=== PATIENT | female | born 1995 | race Caucasian/White ===

== ENCOUNTER → 2019-08-08 | Outpatient (CLI) | payer OTHER ==
[2019-08-08 13:30] LABS: BASO % 0.2 % (0.0-1.0); EOS # 0.2 10^3/uL (0.0-0.5); HEMATOCRIT 40.6 % (36.0-47.0); LYMPH # 2.6 10^3/uL (1.5-5.0); LYMPH % 26.3 % (24.0-44.0); MEAN CORPUSCULAR HEMOGLOBIN 31.5 pg (27.0-33.0); MEAN CORPUSCULAR HGB CONC 34.5 g/dl (32.0-36.5); MEAN CORPUSCULAR VOLUME 91.4 fl (80.0-96.0); MONO # 0.4 10^3/uL (0.0-0.8); MONO % 4.3 % (0.0-5.0); NEUTROPHILS # 6.6 10^3/uL (1.5-8.5); NEUTROPHILS % 66.9 % (36.0-66.0); PLATELET COUNT, AUTOMATED 259 10^3/uL (150-450); RED BLOOD COUNT 4.44 10^6/uL (4.00-5.40); WHITE BLOOD COUNT 9.8 10^3/uL (4.0-10.0)
[2019-08-08 14:41] LABS: HEPATITIS C VIRUS ABY INDEX < 0.0 INDEX (<0.8); HIV 1&2 SCREEN CENTAUR NEGATIVE (NEGATIVE); RUBELLA IgG QUALITATIVE IMMUNE (IMMUNE)
[2019-08-08 14:51] LABS: CHLAMYDIA DNA AMPLIFICATION NEGATIVE (NEGATIVE); GC DNA AMPLIFICATION NEGATIVE (NEGATIVE)
== END ==
LOC: M PLALAB 10:53
PROVIDERS: ATTEND Specialist
DX: Z34.01 Encounter for supervision of normal first pregnancy, first trimester (principal); Z36.89 Encounter for other specified antenatal screening

== ENCOUNTER → 2019-09-16 | Outpatient (CLI) | payer OTHER, MEDICAID | LOC: M PLALAB 11:52 | PROVIDERS: ATTEND Nurse Practitioner Women's Health | DX: Z34.82 Encounter for supervision of other normal pregnancy, second trimester (principal); Z36.89 Encounter for other specified antenatal screening ==

== ENCOUNTER → 2019-09-28 | Outpatient (CLI) | payer OTHER ==
--- NOTE | 2019-09-29 04:20 | REP ---
Clinical: Anatomical evaluation. Comparison: None . Findings: Examination demonstrates a single live intrauterine in transverse (head to maternal left) presentation. motion is identified by technologist. Placenta is noted anterior and grade zero without evidence for placenta previa or abruption. Amniotic fluid volume is normal. Cervix measures 3.1 cm in length and appears closed. No evidence for nuchal cord. Gestational age by current measurements 20 weeks 6 days with LORNA 02/09/2020 . FHR equals 150 beats per minute. BPD 5.3 cm 22 weeks 0 days HC 18.8 cm 21 weeks 1 day AC 15.2 cm 20 weeks 3 days FL 3.5 cm 20 weeks 6 days HL 3.2 cm 20 weeks 4 days HC/AC ratio 1.24 Estimated weight 373 grams ( 43rd percentile). Anatomical assessment demonstrates normal structures including cranium, choroid plexus, cavum, cerebellum/posterior fossa, facial features, lungs, four-chamber heart/ventricular outflow tracts, diaphragm, stomach, cord insertion/three-vessel cord, kidneys/bladder, and extremities. Impression: Single live intrauterine in transverse lie demonstrating appropriate estimated weight. Limited evaluation of the spine noted. Remainder of the anatomical assessment is complete and normal.
== END ==
LOC: M WHC 14:24
PROVIDERS: ATTEND Nurse Practitioner Women's Health
DX: Z34.02 Encounter for supervision of normal first pregnancy, second trimester (principal); Z3A.20 20 weeks gestation of pregnancy

== ENCOUNTER → 2019-10-27 | Outpatient (CLI) | payer OTHER, MEDICAID ==
--- NOTE | 2019-10-28 02:21 | REP ---
Clinical: Anatomical evaluation. Comparison: 09/28/2019 . Findings: Examination demonstrates a single live intrauterine in breech presentation. motion is identified by technologist. Placenta is noted anterior and grade zero without evidence for placenta previa or abruption. Amniotic fluid volume is normal. Cervix measures 4.8 cm in length and appears closed. No evidence for nuchal cord. Gestational age by LMP 24 weeks 0 days with LORNA 02/16/2020 . Gestational age by current measurements 23 weeks 6 days with LORNA 02/17/2020 . FHR equals 142 beats per minute. Estimated weight 653 grams ( 45th percentile). Anatomical assessment demonstrates normal transverse and sagittal imaging of the cervical, thoracic, and lumbar spine although images of the sacral spine are again suboptimal due to positioning. Impression: Single live intrauterine in breech presentation. Limited evaluation of the sacral spine due to positioning.
== END ==
LOC: M WHC 15:00
PROVIDERS: ATTEND Specialist
DX: Z34.92 Encounter for supervision of normal pregnancy, unspecified, second trimester (principal)

== ENCOUNTER → 2019-11-14 | Outpatient (CLI) | payer OTHER ==
--- NOTE | 2019-11-15 02:47 | REP ---
Clinical: Anatomical evaluation. Comparison: 10/27/2019 . Findings: Examination demonstrates a single live intrauterine in cephalic presentation. motion is identified by technologist. Placenta is noted anterior and grade I without evidence for placenta previa or abruption. Amniotic fluid volume is normal. Cervix measures 3.8 cm in length and appears closed. No evidence for nuchal cord. Gestational age by LMP 26 weeks 4 days with LORNA 02/16/2020 . Gestational age by current measurements 26 weeks 5 days with LORNA 02/15/2020 . FHR equals 138 beats per minute. Estimated weight 931 grams ( 37th percentile). Anatomical assessment demonstrates normal structures including cranium, facial features, stomach, cord insertion, kidneys/bladder, and spine. Impression: single live intrauterine in cephalic presentation demonstrating appropriate interval growth. In conjunction with prior examination anatomical assessment is complete and normal.
== END ==
LOC: M WHC 15:21
PROVIDERS: ATTEND Specialist
DX: Z36.89 Encounter for other specified antenatal screening (principal); Z3A.26 26 weeks gestation of pregnancy

== ENCOUNTER 2019-12-23 15:31 | Outpatient (CLI) | payer OTHER, MEDICAID ==
[~2019-12-23] VITALS: Ht 180.3 cm; Wt 97.0 kg
[2019-12-23 15:48] VITALS: BP 107/67
[2019-12-23] MEDS ORDERED: ZOLO25TA PO (15:56)
[2019-12-23] MEDS ORDERED: FAMO20TA PO (15:56)
[2019-12-23 16:49] LABS: APPEARANCE, URINE HAZY (CLEAR); BACTERIA, URINE AUTO NEGATIVE (NEGATIVE); BILIRUBIN, URINE AUTO NEGATIVE (NEGATIVE); BLOOD, URINE BLOOD NEGATIVE (NEGATIVE); CALCIUM OXALATE CRYSTALS SMALL; COLOR, URINE YELLOW (YELLOW); GLUCOSE, URINE (UA) AUTO NEGATIVE (NEGATIVE); KETONE, URINE AUTO NEGATIVE (NEGATIVE); LEUKOCYTE ESTERASE, URINE AUTO TRACE (NEGATIVE); MUCUS, URINE SMALL (NEGATIVE); NITRITE, URINE AUTO NEGATIVE (NEGATIVE); PROTEIN, URINE AUTO NEGATIVE (NEGATIVE); RBC, URINE AUTO 3 /HPF (0-3); SPECIFIC GRAVITY URINE AUTO 1.016 (1.002-1.035); SQUAMOUS EPITHELIAL CELL UR AU 3 /HPF (0-6); UROBILINOGEN, URINE AUTO 0.2 mg/dL (0.0-2.0); WBC, URINE AUTO 1 /HPF (0-3)
--- NOTE | 2019-12-23 16:53 | IPNPDOC ---
Text Note Date of Service The patient was seen on 12/23/19. NOTE Outpatient 24yo G1 LORNA 02/14/2020. Presents @ 32w3d with complaints of upper abdominal cramping since 0700. States they are irregular, 10-20 miinutes apart. Denies LOF, bleeding or pelvic pressure/cramping. Hx significant for poor compliance with care and labs. Pt states she hasn't eaten since 1000 this am. "I was going to come to town Thursday for my labs but now I won't be able to". No apparent distress. Resting easily in bed Abdomen soft, gravid, appropriate for gestation. Patient shows discomfort location at fundus, no radiation. Fetus audibly active. Cat I Mild, rare UC. UA/C&S obtained. Spec exam - cervix visually LTC. Moderate creamy mucoid discharge. FFN obtained. GC/CT/Trich obtained. 1hr GCT ordered along with 26wk labs. Pt verbalized understanding. VS,Fishbone, I+O VS, Fishbone, I+O Vital Signs Date Time Temp Pulse Resp B/P (MAP) Pulse Ox O2 Delivery O2 Flow Rate FiO2 12/23/19 15:48 97.5 123 17 107/67 (80) Silvina Walter CNM Dec 23, 2019 16:52
[2019-12-23 17:47] LABS: HEMATOCRIT 36.9 % (36.0-47.0); HEMOGLOBIN 12.1 g/dl (12.0-15.5); MEAN CORPUSCULAR HEMOGLOBIN 30.6 pg (27.0-33.0); MEAN CORPUSCULAR HGB CONC 32.8 g/dl (32.0-36.5); MEAN CORPUSCULAR VOLUME 93.2 fl (80.0-96.0); PLATELET COUNT, AUTOMATED 223 10^3/uL (150-450); RED BLOOD COUNT 3.96 10^6/uL (4.00-5.40); WHITE BLOOD COUNT 12.4 10^3/uL (4.0-10.0)
[2019-12-23 18:11] LABS: GLUCOSE CHALLENGE TEST 1 HOUR 137 MG/DL (LESS THAN 140)
--- NOTE | 2019-12-23 18:33 | IPNPDOC ---
Text Note Date of Service The patient was seen on 12/23/19. NOTE Progress Feels better after increased hydration, decreased cramping. Cat I tracing, no UC FFN is negative. Discharged home with instructions to reach for after hours access, PTL, daily FKC, warnings reviewed. Keep next appt VS,Fishbone, I+O VS, Fishbone, I+O Laboratory Tests 12/23/19 17:32 Vital Signs Date Time Temp Pulse Resp B/P (MAP) Pulse Ox O2 Delivery O2 Flow Rate FiO2 12/23/19 15:48 97.5 123 17 107/67 (80) Silvina Walter CNM Dec 23, 2019 18:33
[2019-12-23 19:13] LABS: ALT/SGPT 16 U/L (12-78); CREATININE FOR GFR 0.47 MG/DL (0.55-1.30); GLOMERULAR FILTRATION RATE > 60.0 (>60); LDH LACTATE DEHYDROGENASE 112 U/L (84-246); URIC ACID 3.8 MG/DL (2.6-6.0)
[2019-12-23 19:23] LABS: CHLAMYDIA DNA AMPLIFICATION NEGATIVE (NEGATIVE); GC DNA AMPLIFICATION POSITIVE (NEGATIVE)
[2019-12-23 19:37] LABS: TOTAL PROTEIN,RANDOM URINE 27.3 MG/DL (0.0-12.0)
[2019-12-23 20:09] LABS: BILIRUBIN,TOTAL < 0.1 MG/DL (0.2-1.0)
== END 2019-12-23 18:18 | disposition home or self-care (01) ==
LOC: M LDO 15:31
PROVIDERS: ATTEND Advanced Practice Midwife
DX: O26.893 Other specified pregnancy related conditions, third trimester (principal); R10.10 Upper abdominal pain, unspecified; Z3A.32 32 weeks gestation of pregnancy

== ENCOUNTER → 2020-01-20 | Outpatient (REF) | payer OTHER, MEDICAID ==
[~2020-01-20] MED LIST: FAMO20TA PO; IBUP80TA PO; OMEP40CA97 PO; PRENTAB9 PO; ZOFR4TAB16 PO; ZOLO25TA PO
[2020-03-13 12:55] LABS: CHLAMYDIA DNA AMPLIFICATION NEGATIVE (NEGATIVE); GC DNA AMPLIFICATION NEGATIVE (NEGATIVE)
== END ==
LOC: M SFHCWAGY 14:34
PROVIDERS: ATTEND Specialist
DX: Z11.3 Encounter for screening for infections with a predominantly sexual mode of transmission (principal)

== ENCOUNTER 2020-02-07 11:00 | Outpatient (CLI) | payer OTHER, MEDICAID ==
[~2020-02-07] VITALS: Ht 180.3 cm; Wt 106.5 kg
[~2020-02-07 11:00] MED LIST changes: -IBUP80TA PO; -OMEP40CA97 PO; -PRENTAB9 PO; -ZOFR4TAB16 PO
[2020-02-07 11:20] VITALS: BP 104/69
[2020-02-07] MEDS ORDERED: ZOFR4TAB16 PO (11:22)
[2020-02-07] MEDS ORDERED: PRENTAB9 PO (11:22)
[2020-02-07] MEDS ORDERED: OMEP40CA97 PO (11:22)
[2020-02-07 12:00] VITALS: BP 112/72
== END 2020-02-07 12:15 | disposition home or self-care (01) ==
LOC: M LDO 11:00
PROVIDERS: ATTEND Obstetrics & Gynecology
DX: O47.1 False labor at or after 37 completed weeks of gestation (principal); Z3A.38 38 weeks gestation of pregnancy
CPT/HCPCS: 59025; G0378; G0463

== ENCOUNTER 2020-02-08 07:23 | Outpatient (CLI) | payer OTHER, MEDICAID ==
[~2020-02-08] VITALS: Ht 180.3 cm; Wt 106.9 kg
[~2020-02-08 07:23] MED LIST changes: +OMEP40CA97 PO; +PRENTAB9 PO; +ZOFR4TAB16 PO
[2020-02-08 07:43] VITALS: BP 109/62
== END 2020-02-08 09:20 | disposition home or self-care (01) ==
LOC: M LDO 07:23
PROVIDERS: ATTEND Advanced Practice Midwife
DX: O47.1 False labor at or after 37 completed weeks of gestation (principal); Z3A.38 38 weeks gestation of pregnancy
CPT/HCPCS: 59025; G0378; G0463

== ENCOUNTER 2020-02-10 06:08 | Inpatient (IN) | payer OTHER ==
[~2020-02-10] VITALS: Ht 180.3 cm; Wt 107.3 kg
[2020-02-10] VITALS (40 sets, daily range): BP systolic 88–135; BP diastolic 53–88
[2020-02-10] MEDS ORDERED: PENICILLIN G POTASSIUM IV 5 MU in D5W MINI-BAG PLUS 100 ML IV STA (08:12)
[2020-02-10] MEDS ORDERED: LR 1,000 ML IV SCH ×3 (08:12→16:30)
[2020-02-10] MEDS ORDERED: LACTATED RINGER'S 1000 ML IV STA (08:12)
--- NOTE | 2020-02-10 09:01 | HPEPDOC ---
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 Scoliosis Surgical History: Gallbladder, Tonsilectomy Family History Significant Family History: No pertinent family hx Social History Marital Status: Single Psychosocial History: Anxiety, Bipolar, Depression Alcohol: Denies Drugs: denies Allergies Coded Allergies: Latex, Natural Rubber (Verified Allergy, Mild, Burning, 02/08/20) Medications Scheduled Omeprazole (Omeprazole) 40 Mg Capsule.dr, 40 MG PO DAILY Sertraline Hcl (Zoloft) 25 Mg Tablet, 50 MG PO DAILY Scheduled PRN Ondansetron HCl (Zofran) 4 Mg Tablet, 4 MG PO Q4HP PRN for nausea/vomiting Physical Examination Physical Examination GENERAL: Alert and oriented times three. Very uncomfortable BREAST: . ABDOMEN: Gravid and non-tender to touch. FETUS: Is vertex (VTX) by sterile vaginal examination (SVE), fetus is vertex (VTX) by Prince. HEART RATE: Regular rate and rhythm. LUNGS: Clear to auscultation (CTA). EXTREMITIES: No edema. No clonus. Deep tendon reflexes (DTRs) + 2. Vital Signs/I&O Vital Signs Date Time Temp Pulse Resp B/P (MAP) Pulse Ox O2 Delivery O2 Flow Rate FiO2 02/10/20 06:20 97.7 79 20 103/59 (74) Pertinent Laboratoy Data Blood Type: A+ RBC Antibody Screen: Negative HIV: Negative Hepatitis B: Negative Hepatitis C: Negative Rapid Plasma Reagin: Nonreactive Rubella: Immune Chlamydia/Gonorrhea: Negative (negative 08/08/2019. GC + /10, treated, repeat negative) Group B Streptococcus: Positive Glucose Tolerance Test: 137 (3hr not performed) Anatomy Ultrasound Ultrasound Date: Sep 28, 2019 Placenta Location: Anterior Normal Anatomy: Yes (limited views of spine) Placenta Previa: No Estimated Weight (grams): 373 (43%) Other Ultrasounds 10/27/2019 F/u spine, limited views of sacral spine, breech. EFW 653gm, 45% 11/14/2019 f/u spine. Normal f/u anatomy, cephalic. EFW 931gm, 37% Steroid Therapy Steroid Therapy: No Vaginal Examination Dilation: 5 cm Effacement: 100% Station: -1 Cervical Consistency: Soft Cervical Position: Middle Presentation: Cephalic presentation Assessment Heart Rate (FHR): 134 Variability: Moderate Accelerations: Positive Decelerations: None Tocometer Contractions: Yes Frequency: irregular, every 3-7 min. Duration: greater than 60 seconds Strength: palpated as moderate Assessment/Plan Assessment Mercedes is a 24-year-old (G)1 para (P)0-0-0-0 at 39+1 weeks. Presents to Labor and Delivery (L&D) with reports of onset UC with vomiting starting 0200. Reports LOF, clear enroute to hospital, 0545. Light bloody show. Fetus is active. Plan Admit and orient. 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 Diet: Clear liquids. Group B Streptococcus (GBS) positive. Labs and intravenous (IV) per unit protocol. Counseled on Pitocin and induction of labor (IOL). Lactated Ringers (LR): Bolus 500 mL, then at 125 mL/hr. Plans epidural for labor coping Anticipate normal spontaneous delivery (). C-S as appropriate. Silvina Walter CNM Feb 10, 2020 08:46
[2020-02-10] MEDS ORDERED: ONDANSETRON 4MG/2ML VIAL IV PRN ×4 (09:15→16:30)
[2020-02-10 09:45] LABS: HEMATOCRIT 35.5 % (36.0-47.0); MEAN CORPUSCULAR HEMOGLOBIN 30.3 pg (27.0-33.0); MEAN CORPUSCULAR HGB CONC 33.8 g/dl (32.0-36.5); MEAN CORPUSCULAR VOLUME 89.6 fl (80.0-96.0); PLATELET COUNT, AUTOMATED 214 10^3/uL (150-450); RED BLOOD COUNT 3.96 10^6/uL (4.00-5.40); WHITE BLOOD COUNT 12.9 10^3/uL (4.0-10.0)
[2020-02-10] MEDS ORDERED: FENTANYL 2MCG/ML ROPIVACAINE 0.2% IN 0.9% NACL 100ML IVBAG As Ordered ONE (10:28)
[2020-02-10] MEDS ORDERED: ePHEDrine SULFATE 25 MG/5 ML(5MG/ML) SYRINGE As Ordered ONE (11:47)
[2020-02-10] MEDS ORDERED: FENTANYL/ROPIVACAINE/NACL BAG 100 ML EPIDURAL SCH (12:00)
[2020-02-10] MEDS ORDERED: EPIDURAL COMMENT XX SCH (12:00)
[2020-02-10] MEDS ORDERED: EPIDURAL/PCA KEYS XX PRN (12:00)
[2020-02-10] MEDS ORDERED: NALOXONE INJ 0.4MG/1ML VIAL (J2310 PER 1MG) IV PRN ×3 (12:00→15:00)
[2020-02-10] MEDS ORDERED: REFRIGERATOR IV KEYS XX PRN (12:00)
[2020-02-10] MEDS ORDERED: diphenhydrAMINE 50MG/ML VIAL (J1200) IV PRN ×2 (12:00→15:00)
--- NOTE | 2020-02-10 12:40 | IPNPDOC ---
Text Note Date of Service The patient was seen on 02/10/20. NOTE Progress Comfortable with epidural FH difficult to trace UC 2-4 minutes SVE 7/100/-1, BBOW AROM large amount moderately thick meconium. FSE placed. Cat I tracing Will notify NICU for delivery VS,Fishbone, I+O VS, Fishbone, I+O Laboratory Tests 02/10/20 09:17 Vital Signs Date Time Temp Pulse Resp B/P (MAP) Pulse Ox O2 Delivery O2 Flow Rate FiO2 02/10/20 09:59 70 20 113/74 (87) 02/10/20 08:17 97.3 Silvina Walter CNM Feb 10, 2020 12:39
[2020-02-10] MEDS ORDERED: PENICILLIN G POTASSIUM IV 2.5 MU in IV 1 EA IV SCH (13:00)
[2020-02-10] MEDS: ePHEDrine SULFATE 25 MG/5 ML(5MG/ML) SYRINGE IV PRN ×3 (13:53→14:10)
[2020-02-10] MEDS ORDERED: TERBUTALINE SULFATE 1 MG/ML VIAL (J3105) As Ordered ONE (14:08)
[2020-02-10] MEDS ORDERED: BICITRA 30ML SOLN UDC As Ordered ONE (14:23)
[2020-02-10] MEDS ORDERED: ceFAZolin 2 GM/D5W 50 ML IV BAG (J0690 PER 500MG) As Ordered ONE (14:23)
[2020-02-10] MEDS ORDERED: LIDOCAINE 2% W/EPINEPHRINE 20ML VIAL **PRES FREE As Ordered ONE (14:38)
[2020-02-10] MEDS ORDERED: MORPHINE PRES-FREE INJ 10 MG/10 ML VIAL (J2274) As Ordered ONE (14:38)
--- NOTE | 2020-02-10 14:40 | IPNPDOC ---
Text Note Date of Service The patient was seen on 02/10/20. NOTE Progress Prolonged heart deceleration to 70's-80's despite O2, position change, IVF bolus. Ephedrine given x 3. Terbutaline 0.25mg SC given Cervix remains [address] Cazares and Evelyn in to evaluation. Prepare for . VS,Fishbone, I+O VS, Fishbone, I+O Laboratory Tests 02/10/20 09:17 Vital Signs Date Time Temp Pulse Resp B/P (MAP) Pulse Ox O2 Delivery O2 Flow Rate FiO2 02/10/20 12:09 92 16 134/79 (97) 02/10/20 08:17 97.3 Silvina Walter CNM Feb 10, 2020 14:40
[2020-02-10] MEDS ORDERED: TERBUTALINE SULFATE 1 MG/ML VIAL (J3105) SC ONE (14:45)
[2020-02-10] MEDS ORDERED: BICITRA 30ML SOLN UDC PO ONE (14:45)
[2020-02-10] MEDS ORDERED: ceFAZolin SOD 2 GM in IV 1 EA IV ONE (14:45)
[2020-02-10] MEDS ORDERED: PHENYLephrine HCL 500 MCG/5 ML (100MCG/ML) SYRINGE (J2370) As Ordered ONE (14:51)
[2020-02-10] MEDS ORDERED: ONDANSETRON 4MG/2ML VIAL As Ordered ONE (14:54)
[2020-02-10] MEDS ORDERED: NALBUPHINE HCL 10 MG/ML AMP (J2300) IV PRN (15:00)
[2020-02-10] MEDS ORDERED: OXYTOCIN INJ 10 UNITS/ML VIAL (J2590) As Ordered ONE (15:00)
[2020-02-10] MEDS ORDERED: METOCLOPRAMIDE INJ 10MG/2ML VIAL (J2765 PER 1) IV PRN ×2 (15:00→16:30)
[2020-02-10] MEDS ORDERED: dexameTHASONE 4 MG/ML 1ML VIAL (J1100 PER 1MG) As Ordered ONE (15:03)
[2020-02-10 15:16] LABS: CORD GAS PCO2 A 62.3 mmHg; CORD GAS PH A 7.221 UNITS; CORD GAS PO2 A 19.3 mmHg; CORD GAS TCO2 A 26.9 MEQ/L
[2020-02-10 15:17] LABS: CORD GAS ABE A -4.1; CORD GAS HCO3 V 22.4 MEQ/L; CORD GAS O2 SAT A 31.7 %; CORD GAS PCO2 V 45.1 mmHg; CORD GAS PH V 7.313 UNITS; CORD GAS SBC A 19.5 MEQ/L; CORD GAS SBC V 20.4 MEQ/L; CORD GAS TCO2 V 23.7 MEQ/L
[2020-02-10 15:18] LABS: CORD GAS O2 SAT V 62.6 %
[2020-02-10] MEDS ORDERED: KETOROLAC 60MG 2ML VIAL As Ordered ONE (15:32)
[2020-02-10] MEDS ORDERED: ACETAMINOPHEN 500 MG TAB PO PRN (16:00)
[2020-02-10] MEDS ORDERED: OXYTOCIN DRIP 30 UNITS in IV 1 EA IV SCH (16:00)
[2020-02-10] MEDS ORDERED: PROMETHAZINE 25 MG TAB PO PRN (16:00)
[2020-02-10] MEDS ORDERED: ONDANSETRON 4 MG TAB PO PRN (16:00)
[2020-02-10] MEDS ORDERED: RHOGAM 300 MCG (1500 IU) INJ (J2790) IM SCH (16:00)
[2020-02-10] MEDS ORDERED: MEASLES,MUMPS,RUBELLA VACCINE INJ (MMR-II) (90707) SC SCH (16:00)
[2020-02-10] MEDS ORDERED: OXYTOCIN 30 UNITS IN 0.9% NaCl 500ML IV BAG (J2590) As Ordered ONE (16:13)
[2020-02-10] MEDS ORDERED: AZITHROMYCIN INJ 500 MG, VIAL MATE ADAPTER 1 EACH in D5W 250 ML IV ONE (16:15)
[2020-02-10] MEDS ORDERED: fentaNYL 100 MCG/2 ML INJECTION (J3010) IV PRN (16:30)
[2020-02-10] MEDS ORDERED: PERCOCET 5MG/325MG TAB PO PRN (16:30)
[2020-02-10] MEDS ORDERED: METOCLOPRAMIDE INJ 10MG/2ML VIAL (J2765 PER 1) As Ordered ONE (16:54)
[2020-02-10] MEDS: DOCUSATE SODIUM 100 MG CAP PO SCH (20:46)
[2020-02-10] MEDS: KETOROLAC 30 MG/ML 1ML VIAL IV SCH (22:09)
[2020-02-11 01:51] VITALS: BP 112/68
[2020-02-11] MEDS: PERCOCET 5MG/325MG TAB PO PRN ×2 (02:47→16:23)
[2020-02-11] MEDS: KETOROLAC 30 MG/ML 1ML VIAL IV SCH ×2 (04:08→10:23)
[2020-02-11 05:57] VITALS: BP 123/71
[2020-02-11 07:03] LABS: HEMATOCRIT 26.4 % (36.0-47.0); HEMOGLOBIN 8.9 g/dl (12.0-15.5); MEAN CORPUSCULAR HEMOGLOBIN 30.4 pg (27.0-33.0); MEAN CORPUSCULAR HGB CONC 33.7 g/dl (32.0-36.5); MEAN CORPUSCULAR VOLUME 90.1 fl (80.0-96.0); PLATELET COUNT, AUTOMATED 175 10^3/uL (150-450); RED BLOOD COUNT 2.93 10^6/uL (4.00-5.40); WHITE BLOOD COUNT 15.3 10^3/uL (4.0-10.0)
--- NOTE | 2020-02-11 07:17 | IPNPDOC ---
Text Note Date of Service The patient was seen on 02/11/20. NOTE PO #1 Feels well. Adequate pain management. OOB independently. . Voiding VSS, afebrile, normotensive Breasts soft, nipples intact Fundus firm, NT Dressing intact, scant old drainage Lochia rubra light without odor PO #1 Routine care. Anticipate D/C in am VS,Fishbone, I+O VS, Fishbone, I+O Laboratory Tests 02/10/20 09:17 02/11/20 06:37 Vital Signs Date Time Temp Pulse Resp B/P (MAP) Pulse Ox O2 Delivery O2 Flow Rate FiO2 02/11/20 06:32 18 02/11/20 05:57 98.8 84 123/71 (88) 96 02/11/20 02:47 Room Air I&O- Last 24 Hours up to 6 AM 02/11/20 06:00 Intake Total 1110 ml Output Total 3750 ml Balance -2640 ml Silvina Walter CNM Feb 11, 2020 07:17
[2020-02-11 10:00] VITALS: BP 110/54
[2020-02-11] MEDS: PRENATAL VITAMINS CHEWABLE TABLET PO SCH (10:22)
[2020-02-11] MEDS: DOCUSATE SODIUM 100 MG CAP PO SCH ×2 (10:22→21:33)
[2020-02-11 18:00] VITALS: BP 121/68
[2020-02-11] MEDS: IBUPROFEN 800 MG TAB PO SCH (18:02)
[2020-02-11] MEDS ORDERED: FAMOTIDINE 20 MG TAB PO SCH (21:00)
[2020-02-11] MEDS ORDERED: SERTRALINE HCL 50 MG TAB PO SCH (21:00)
[2020-02-11 22:06] VITALS: BP 112/61
[2020-02-12] MEDS: PERCOCET 5MG/325MG TAB PO PRN ×3 (00:21→15:56)
[2020-02-12] MEDS: IBUPROFEN 800 MG TAB PO SCH ×2 (02:16→10:00)
[2020-02-12 06:06] VITALS: BP 106/56
[2020-02-12] MEDS ORDERED: IBUP80TA PO (06:31)
[2020-02-12] MEDS: DOCUSATE SODIUM 100 MG CAP PO SCH (07:54)
[2020-02-12] MEDS: PRENATAL VITAMINS CHEWABLE TABLET PO SCH (07:55)
[2020-02-12] MEDS ORDERED: BOOSTRIX/ADACEL VACCINE (DIPHTH/PERTUSS/ACELL/TETANUS) 0.5ML SYR IM ONE (09:00)
--- NOTE | 2020-02-28 12:07 | DSES ---
DATE OF ADMISSION: 02/10/2020 DATE OF DISCHARGE: 02/12/2020 HISTORY: 24-year-old, 1 at 39-1/7 weeks gestation presents with regular contractions for several hours and contractions increased in intensity. She had vomiting as well. HOSPITAL COURSE: The patient was admitted for labor on 02/10/2020 in the coremaking supervisor hours. She made slow initial progress in labor. She eventually began to have repetitive heart rate decelerations which were prolonged. She subsequently went for an urgent section resulting in a 7 pound 14 ounce infant. There were no complications. Her postoperative course was unremarkable. She had adequate return of bladder and bowel function. Her postoperative hemoglobin was 8.9 g/dL. She was deemed stable for discharge on postoperative day #2. PROCEDURE: Primary section. PLAN: Patient will followup in 2 weeks. Instructions were reviewed. MARIANO
== END 2020-02-12 21:27 | disposition home or self-care (01) | DRG 540 ==
LOC: M LDO 06:08 → M LDI 08:31 → M OBS 17:24
PROVIDERS: ADMIT Advanced Practice Midwife; ATTEND Advanced Practice Midwife
PROC: 10D00Z1 Extraction of Products of Conception, Low, Open Approach (ICD-10-PCS; principal; 2020-02-10 14:22)
DX: O76 Abnormality in fetal heart rate and rhythm complicating labor and delivery (principal); O99.824 Streptococcus B carrier state complicating childbirth; Z37.0 Single live birth; Z3A.39 39 weeks gestation of pregnancy; Z91.040 Latex allergy status

== ENCOUNTER 2021-03-03 21:21 | Inpatient (IN) | payer OTHER, MEDICAID ==
[~2021-03-03] VITALS: Ht 180.3 cm; Wt 96.9 kg
[~2021-03-03 21:21] MED LIST changes: +IBUP80TA PO; +OMEP40CA4 PO; -OMEP40CA97 PO
[2021-03-03 22:47] LABS: HEMATOCRIT 43.8 % (36.0-47.0); MEAN CORPUSCULAR HEMOGLOBIN 31.4 pg (27.0-33.0); MEAN CORPUSCULAR HGB CONC 34.2 g/dl (32.0-36.5); MEAN CORPUSCULAR VOLUME 91.6 fl (80.0-96.0); PLATELET COUNT, AUTOMATED 300 10^3/uL (150-450); RED BLOOD COUNT 4.78 10^6/uL (4.00-5.40); WHITE BLOOD COUNT 9.2 10^3/uL (4.0-10.0)
[2021-03-03 23:19] LABS: HCG, SERUM QUALITATIVE NEGATIVE (NEGATIVE)
[2021-03-03 23:22] LABS: ACETAMINOPHEN LEVEL < 2.0 UG/ML (10.0-30.0); ALT/SGPT 19 U/L (12-78); BILIRUBIN,DIRECT 0.1 MG/DL (0.0-0.2); BILIRUBIN,TOTAL 0.6 MG/DL (0.2-1.0); BLOOD UREA NITROGEN 12 MG/DL (7-18); CALCIUM LEVEL 8.8 MG/DL (8.5-10.1); CARBON DIOXIDE LEVEL 25 MEQ/L (21-32); CHLORIDE LEVEL 107 MEQ/L (98-107); CREATININE FOR GFR 0.66 MG/DL (0.55-1.30); ETHYL ALCOHOL (ETHANOL) < 0.003 % (0.000-0.010); GLOMERULAR FILTRATION RATE > 60.0 (>60); GLUCOSE, FASTING 78 MG/DL (70-100); POTASSIUM SERUM 3.9 MEQ/L (3.5-5.1); SALICYLATE LEVEL < 1.7 MG/DL (5.0-30.0); SODIUM LEVEL 140 MEQ/L (136-145); THYROID STIMULATING HORMONE 0.856 uIU/ML (0.358-3.740); TOTAL PROTEIN 7.5 GM/DL (6.4-8.2)
[2021-03-03 23:26] LABS: AMPHETAMINES LEVEL URINE POSITIVE (NEGATIVE); BARBITURATES URINE NEGATIVE (NEGATIVE); BENZODIAZEPINES URINE POSITIVE (NEGATIVE); CANNABINOIDS URINE POSITIVE (NEGATIVE); COCAINE METABOLITE URINE NEGATIVE (NEGATIVE); METHADONE URINE NEGATIVE (NEGATIVE); OPIATES URINE NEGATIVE (NEGATIVE); PHENCYCLIDINE URINE NEGATIVE (NEGATIVE)
[2021-03-04] MEDS ORDERED: SERO200T PO (01:54)
[2021-03-04] MEDS ORDERED: VYVA40CA3 PO (01:54)
[2021-03-04] MEDS ORDERED: LAMI1TAB7 PO (01:55)
[2021-03-04] MEDS ORDERED: clonazePAM 0.5 MG TAB PO ONE (09:45)
[2021-03-04 12:40] LABS: RSV AMPLIFICATION NEGATIVE (NEGATIVE)
[2021-03-04] MEDS ORDERED: OLANZapine ORAL DISINTEGRATING TAB 5MG PO SCH (16:00)
[2021-03-04 16:56] VITALS: BP 130/81
[2021-03-04] MEDS ORDERED: OLANZapine ORAL DISINTEGRATING TAB 5MG PO ONE (17:00)
--- NOTE | 2021-03-04 17:17 | MHIPNPDOC ---
[facility] Progress Note Progress Note DATE OF SERVICE: 03/04/21 This web content writer discussed the case with Matteo Hidalgo who reported the patient as being very bizarre and delusional, having disorganized thoughts. This web content writer reviewed the previous Mental health Evlauation when initially came to the ED and concluded that the patient is at risk because she seems to be going through a manic episode which may and may not be secondary to amphetamines, since she tested positive for these. She is not safe to go home, she needs to be admitted for treatment and stabilization to [facility]. Vital Signs Vital Signs Date Time Temp Pulse Resp B/P (MAP) Pulse Ox O2 Delivery O2 Flow Rate FiO2 03/04/21 16:56 97.6 71 20 130/81 (97) 93 Room Air Laboratory Data 24H Labs Laboratory Tests 2 03/03/21 22:37: Nucleated Red Blood Cells % (auto) 0.0, Anion Gap 8, Glomerular Filtration Rate > 60.0, Calcium Level 8.8, Total Bilirubin 0.6, Direct Bilirubin 0.1, Aspartate Amino Transf (AST/SGOT) 10, Alanine Aminotransferase (ALT/SGPT) 19, Alkaline Phosphatase 46, Total Protein 7.5, Albumin 4.0, Albumin/Globulin Ratio 1.1L, Thyroid Stimulating Hormone (TSH) 0.856, Human Chorionic Gonadotropin, Qual NEGATIVE, Salicylates Level < 1.7L, Urine Opiates Screen NEGATIVE, Urine Methadone Screen NEGATIVE, Acetaminophen Level < 2.0L, Urine Barbiturates Screen NEGATIVE, Urine Phencyclidine Screen NEGATIVE, Urine Amphetamines Screen POSITIVEH, Urine Benzodiazepines Screen POSITIVEH, Urine Cocaine Metabolite Screen NEGATIVE, Urine Cannabinoids Screen POSITIVEH, Ethyl Alcohol Level < 0.0 03 03/04/21 11:54: Coronavirus (COVID-19)(PCR) NEGATIVE, Influenza Type A (RT-PCR) NEGATIVE, Influenza Type B (RT-PCR) NEGATIVE, Respiratory Syncytial Virus (PCR) NEGATIVE CBC/BMP Laboratory Tests 03/03/21 22:37 Current Medications Current Medications Medications (Trade) Dose Ordered Sig/Sean Route PRN Reason Start Time Stop Time Status Last Admin Dose Admin Acetaminophen (Tylenol Tab) 650 mg Q6HP PRN PO HEADACHE or MILD DISCOMFORT 03/04/21 15:25 Al Hydrox/Mg Hydrox/Simethicone (Mylanta) 30 ml Q4HP PRN PO HEARTBURN/INDIGESTION 03/04/21 15:25 Magnesium Hydroxide (Milk Of Magnesia) 30 ml DAILYPRN PRN PO CONSTIPATION 03/04/21 15:25 Nicotine (Nicoderm Cq 7 Mg) 1 patch DAILY PRN TD nicotine withdrawl 03/04/21 15:25 Olanzapine (ZyPREXA ZYDIS) 5 mg TID PO 03/04/21 16:00 Quetiapine Fumarate (SEROquel) 100 mg QHSP PRN PO insomnia 03/04/21 15:25 Allergies Coded Allergies: haloperidol (Verified Allergy, Severe, Tongue Swelling , 03/03/21) Per patient Latex, Natural Rubber (Verified Allergy, Mild, Burning, 02/08/20) BATOOL EM MD Mar 04, 2021 17:17
[2021-03-04] MEDS: ACETAMINOPHEN TAB 650MG DOSE (2X325MG) PO PRN (18:25)
[2021-03-04] MEDS ORDERED: LORazepam 2 MG TAB PO ONE (19:40)
[2021-03-04] MEDS ORDERED: chlorproMAZINE 25 MG TABLET PO ONE (19:50)
[2021-03-04] MEDS: diphenhydrAMINE 50MG CAP PO ONE ×2 (19:53→20:27)
[2021-03-04] MEDS: QUEtiapine FUMARATE 100 MG TAB PO PRN (23:53)
[2021-03-05] MEDS ORDERED: LORazepam 1 MG TAB PO ONE ×2 (00:10→21:50)
[2021-03-05] MEDS ORDERED: diphenhydrAMINE 50MG CAP PO ONE (00:10)
[2021-03-05] MEDS ORDERED: diphenhydrAMINE 25MG CAP PO ONE (00:15)
--- NOTE | 2021-03-05 00:38 | IPNPDOC ---
Text Note Date of Service The patient was seen on 03/05/21. NOTE CODE 25 NOTE TIME OF SERVICE 1230AM PSYCH CERTIFICATION FACE TO FACE: yes PHYSICIAN ASSESSMENT: The patient was agitated yelling at staff and pushing the furniture in her room around; [facility] staff felt that she was a danger to herself so they called a code 25. VITALS GEN: irritable / yelling MSK: extremities in restraints REASON FOR RESTRAINT: The patient was a danger to herself. DE-ESCALATION INTERVENTIONS ATTEMPTED BEFORE USE OF RESTRAINTS: verbal redirection [MECHANICAL AND/OR CHEMICAL] RESTRAINTS USED: Both LENGTH OF TIME ORDERED IN RESTRAINTS: 4 hours WHEN TO DISCONTINUE RESTRAINTS: When the patient is no longer a threat to herself or others Post evaluation of restraint due in 24 hours. VS,Fishbone, I+O VS, Fishbone, I+O Vital Signs Date Time Temp Pulse Resp B/P (MAP) Pulse Ox O2 Delivery O2 Flow Rate FiO2 03/04/21 16:56 97.6 71 20 130/81 (97) 93 Room Air CIPRIANO REEVES MD Mar 05, 2021 00:38
[2021-03-05] MEDS ORDERED: chlorproMAZINE INJ 50MG/2ML AMP (J3230) IM STA (00:41)
[2021-03-05 04:00] VITALS: BP 130/81
[2021-03-05 04:01] VITALS: BP 115/76
[2021-03-05] MEDS ORDERED: diphenhydrAMINE 50MG/ML VIAL (J1200) IM ONE (04:25)
[2021-03-05] MEDS ORDERED: chlorproMAZINE INJ 50MG/2ML AMP (J3230) IM ONE (04:25)
[2021-03-05] MEDS ORDERED: LORazepam 2 MG/ML VIAL IM ONE (04:25)
[2021-03-05] MEDS: OLANZapine ORAL DISINTEGRATING TAB 5MG PO SCH (08:36)
[2021-03-05] MEDS ORDERED: OLANZapine 5 MG TAB PO SCH (09:00)
[2021-03-05] MEDS ORDERED: chlorproMAZINE 25 MG TABLET PO ONE ×2 (10:50→21:50)
[2021-03-05] MEDS: LORazepam 2 MG TAB PO PRN ×2 (10:55→17:06)
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
--- NOTE | 2021-03-05 13:46 | ECGEPIP ---
[facility] - ED Test Date: 2021-03-04 Pat Name: TYRESE ZAMORANO Department: Room: - Gender: Female Data Officer: JOSE : 1995 Requested By: KIMBERLY Taylor Order Number: [id number] Reading MD: Stefany Guzman Measurements Intervals [place] Rate: 82 P: 14 FL: 138 QRS: 59 QRSD: 94 T: 24 QT: 390 QTc: 455 Interpretive Statements Normal sinus rhythm No prior Electronically Signed on 03-05-2021 13:46:33 EDT by Stefany Guzman
[2021-03-05] MEDS: DIVALPROEX 250MG *ER* TAB PO SCH (15:30)
[2021-03-05 17:16] VITALS: BP 129/89
[2021-03-05] MEDS ORDERED: VRAY1.5C PO (18:26)
[2021-03-05] MEDS ORDERED: MED REC COMMENT (18:26)
[2021-03-05] MEDS ORDERED: QUET50TA4 PO (18:26)
[2021-03-05] MEDS ORDERED: SYMB16INH INH (18:26)
[2021-03-05] MEDS ORDERED: PREN1CHW6 PO (18:26)
[2021-03-05] MEDS ORDERED: PROAAER10 INH (18:26)
[2021-03-05] MEDS ORDERED: HOME MED LIST COMPLETE! XX SCH (18:30)
[2021-03-05] MEDS: QUEtiapine FUMARATE 100 MG TAB PO PRN (19:35)
[2021-03-05] MEDS: fluPHENAZine 5MG TABLET PO SCH (19:35)
[2021-03-05] MEDS ORDERED: OLANZapine ORAL DISINTEGRATING TAB 5MG PO SCH (21:00)
[2021-03-05] MEDS ORDERED: OLANZapine 10 MG TAB PO SCH (21:00)
[2021-03-06] MEDS: ACETAMINOPHEN TAB 650MG DOSE (2X325MG) PO PRN (05:34)
[2021-03-06 06:33] VITALS: BP 120/77
[2021-03-06 07:24] LABS: CHOLESTEROL RISK RATIO 3.743 (<5)
[2021-03-06] MEDS: LORazepam 2 MG TAB PO PRN ×2 (07:48→14:20)
[2021-03-06] MEDS: DIVALPROEX 250MG *ER* TAB PO SCH (08:07)
[2021-03-06] MEDS: OLANZapine ORAL DISINTEGRATING TAB 5MG PO SCH ×2 (08:07→20:09)
[2021-03-06] MEDS: fluPHENAZine 5MG TABLET PO SCH (08:07)
[2021-03-06] MEDS ORDERED: QUEtiapine FUMARATE 100 MG TAB PO PRN ×2 (10:45→10:55)
[2021-03-06] MEDS ORDERED: OLANZapine ORAL DISINTEGRATING TAB 5MG PO PRN (12:50)
--- NOTE | 2021-03-06 13:01 | MHIPNPDOC ---
[facility] Progress Note Progress Note DATE OF SERVICE: 03/06/21 HISTORY: Patient is a 25 -year-old , female, with a history of asperger's, schizoaffective, bipolar disorder, ADHD, PTSD (per provider at [facility] per mother report)borderline personality disorder who arrives to the ED after being dropped off by mother, since patient was reportedly acting bizarre. Was noted to be disorganized and inappropriate on initial evaluation in the emergency department, per chart review was making statements asking security if she could lay in her bed naked. Was initially noted to be disorganized and having paranoid delusions/illusions of social work having an affair with one of her partners "Gus" and hiding drugs. Urine talk screen was positive for benzodiazepines, amphetamines which patient related to home medications of lorazepam and Vyvanse, was also positive for cannabis which she admitted to using. Upon arrival to the unit she had received 15 mg of Zyprexa, 150 mg of Thorazine due to agitation. Interval: Patient is seen primarily in the hallway, has been pulling down shirt had to be redirected. Has been taking medications however including increased dose of fluphenazine and Depakote, no acute physical symptoms endorsed however is disorganized and oriented to person, place, year but not date. 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 States she prefers having a female present, we stated that that could be arranged. During interview patient is looking around the room as if responding to internal stimuli, at times with intense stare. Per nursing staff had been making sexually inappropriate comments, with nursing staff present had to be redirected with these behaviors. States she is depressed and just needs her Zoloft, perseverating on this and then talking as if someone is there in the room with her. VITAL SIGNS: See below. NEW TEST RESULTS: Lipid panel within normal limits apart from low HDL at 39, ordered omega-3 FFA CURRENT MEDICATIONS: See below. MENTAL STATUS EXAMINATION: Patient is a 25-year old female, who is standing in the hallway with a blank stare at times, appears older than stated age, overweight, in hospital clothing, disheveled Speech: Is slowed, disorganized. Language skills are poor. Thought processes including: Disorganized. Thought content: Does not answer clearly no suicidal questioning, denies homicidal ideation. Abstract reasoning, and computation: Limited. Description of associations: Poor. Description of abnormal or psychotic thoughts: Appears to be responding to internal stimuli, talking to people that are not there. Judgment: Poor. Insight: Poor. Orientation: To person self and year but not date. Recent and remote memory: Poor. Attention span and concentration: Decreased in context disorganization Language: German. Fund of knowledge: Unable to assess. Mood: Depressed. Affect: Grossly psychotic, internally preoccupied, inappropriate DIAGNOSES: bipolar disorder versus schizoaffective disorder bipolar type Pervasive developmental disorder, autism spectrum disorder tobacco use disorder cannabis use disorder, moderate ASSESSMENT: Patient continues to be grossly psychotic, impulsive, inappropriate behavior requiring constant redirection, she is internally preoccupied and engaging with hallucinations, no acute aggression noted. Patient needs continued stay to acute psychotic state and safety risk to self and others. MANAGEMENT PLAN: Cross titrating fluphenazine for olanzapine, olanzapine decreased to 5 mg twice daily, fluphenazine increased to 10 mg twice daily, continue Depakote 750 for mood stabilization, ordered Depakote level for tomorrow every morning. Patient has as needed olanzapine 5 mg every 6 hours for acute agitation, lorazepam 2 mg as needed for agitation. Per chart review and staff has taken 8 mg lorazepam last 24 hours. TIME SPENT: 25 minutes. Vital Signs Vital Signs Date Time Temp Pulse Resp B/P (MAP) Pulse Ox O2 Delivery O2 Flow Rate FiO2 03/06/21 06:33 97.7 138 16 120/77 (91) 94 Room Air Laboratory Data 24H Labs Laboratory Tests 2 03/06/21 06:42: Triglycerides Level 81, Total Cholesterol 146, LDL Cholesterol 91, Non-HDL Cholesterol (LDL + VLDL) 107, Total HDL Cholesterol 39L, Cholesterol/HDL Ratio 3.743 Current Medications Current Medications Medications (Trade) Dose Ordered Sig/Sean Route PRN Reason Start Time Stop Time Status Last Admin Dose Admin Acetaminophen (Tylenol Tab) 650 mg Q6HP PRN PO HEADACHE or MILD DISCOMFORT 03/04/21 15:25 03/06/21 05:34 Al Hydrox/Mg Hydrox/Simethicone (Mylanta) 30 ml Q4HP PRN PO HEARTBURN/INDIGESTION 03/04/21 15:25 Chlorpromazine HCl (Thorazine) 50 mg STAT STAT IM 03/05/21 00:41 03/05/21 00:44 DC 03/05/21 00:51 Divalproex Sodium (Depakote Er) 750 mg DAILY PO 03/05/21 09:00 03/06/21 08:07 Fluphenazine HCl (Prolixin) 5 mg BID PO 03/05/21 21:00 03/06/21 10:47 DC 03/06/21 08:07 Fluphenazine HCl (Prolixin) 10 mg BID PO 03/06/21 21:00 Home Med (Home Med List Complete!) ASDIRECTED XX 03/05/21 18:30 03/05/21 18:29 DC Lorazepam (Ativan) 2 mg Q4HP PRN PO ANXIETY/AGITATION 03/05/21 10:40 03/06/21 07:48 Magnesium Hydroxide (Milk Of Magnesia) 30 ml DAILYPRN PRN PO CONSTIPATION 03/04/21 15:25 Nicotine (Nicoderm Cq 7 Mg) 1 patch DAILY PRN TD nicotine withdrawl 03/04/21 15:25 Olanzapine (ZyPREXA ZYDIS) 5 mg QAM PO 03/05/21 09:00 03/06/21 08:07 Olanzapine (ZyPREXA ZYDIS) 5 mg TID PO 03/04/21 16:00 03/05/21 03:47 DC Olanzapine (ZyPREXA ZYDIS) 10 mg QHS PO 03/05/21 21:00 03/05/21 19:35 Olanzapine (ZyPREXA) 5 mg DAILY PO 03/05/21 09:00 Cancel Olanzapine (ZyPREXA) 10 mg QHS PO 03/05/21 21:00 Cancel Quetiapine Fumarate (SEROquel) 100 mg QHSP PRN PO insomnia 03/04/21 15:25 03/06/21 10:47 DC 03/05/21 19:35 Quetiapine Fumarate (SEROquel) 100 mg QHSP PRN PO insomnia 03/06/21 10:55 Quetiapine Fumarate (SEROquel) 200 mg QHSP PRN PO insomnia 03/06/21 10:45 03/06/21 10:54 DC Allergies Coded Allergies: haloperidol (Verified Allergy, Severe, Tongue Swelling , 03/03/21) Per patient Latex, Natural Rubber (Verified Allergy, Mild, Burning, 02/08/20) BARRON MORALES MD Mar 06, 2021 13:01
--- NOTE | 2021-03-06 14:10 | HPEPDOC ---
General Date of Admission Mar 04, 2021 at 15:21 Date of Service: Mar 06, 2021 Chief Complaint The patient is a 25-year-old female admitted with a reason for visit of Unspecified Bipolar Disorder. History of Present Illness 25-year-old female admitted to inpatient mental health unit for decompensated bipolar disorder. She has been examined here for medical history and physical. She complains of some milk discharge from her right breast. Her baby in 1 year old and she does not breast feed. Home Medications Scheduled Budesonide/Formoterol (Symbicort 160-4.5 Mcg Inhaler) 6 Gm Hfa.aer.ad, 2 PUFF INH BID for COPD, (Reported) Cariprazine HCl (Vraylar) 1.5 Mg Capsule, 1.5 MG PO DAILY for MOOD, (Reported) Vit37/Iron/Folic Acid ([place] Chewable Tablet) 1 Each Tab.chew, 1 CHW PO DAILY for SUPPLEMENT, (Reported) Quetiapine Fumarate (Quetiapine Fumarate) 50 Mg Tablet, 50 MG PO QHS for MOOD, (Reported) Scheduled PRN Albuterol Sulfate (Proair Hfa) 8.5 Gm Hfa.aer.ad, 2 PUFF INH Q6H PRN for SHORTNESS OF BREATH, (Reported) Miscellaneous Medications [Med Rec Comment] , for ., (Reported) LIST OBTAINED FROM PCP Allergies Coded Allergies: haloperidol (Verified Allergy, Severe, Tongue Swelling , 03/03/21) Per patient Latex, Natural Rubber (Verified Allergy, Mild, Burning, 02/08/20) Past Medical History Medical History Asthma, Asperger's syndrome, schizoaffective disorder, bipolar disorder, ADHD, PTSD, borderline personality disorder, cutting, Venkat-Danlos syndrome, scoliosis, ASD, PCOS, eosinophilic asthma, tonsillectomy, cholecystectomy, Family History Bipolar disorder, alcohol addiction, depression with suicidal attempt, brother had blood clot and in his 20s, heart disease, hypertension A-FIB/CHADSVASC A-FIB History Current/History of A-Fib/PAF?: No Age/Risk Factor Scoring CHADSVASC: CHADSVASC Response (Comments) Value Age Risk Factor Age < 65 years old 0 Gender Risk Factor Female 1 Hx of CHF No 0 Hx of HTN No 0 Hx of Stroke/TIA/or VTE No 0 Hx of Diabetes No 0 Hx of Vascular Disease No 0 Total 1 Review of Systems Constitutional: Denies: Chills, Fever, Night Sweats Eyes: Denies: Pain, Vision change ENT: Denies: Head Aches, Ear Pain, Dysphagia Skin: Denies: Rash, Lesions, Breakdown Pulmonary: Denies: Dyspnea, Cough Cardiovascular: Denies: Chest Pain, Palpitations, Orthopnea, Paroxysmal Noc. Dyspnea, Lt Headedness Gastrointestinal: Denies: Nausea, Vomiting, Abdominal Pain, Diarrhea Genitourinary: Denies: Dysuria, Frequency, Incontinence, Retention Physical Examination General Exam: Positive: Alert, Cooperative, No Acute Distress Eye Exam: Positive: PERRLA, Conjunctiva & lids normal, EOMI; Negative: Sclera icteric ENT Exam: Positive: Atraumatic, Mucous membr. moist/pink, Pharynx Normal Neck Exam: Positive: Supple; Negative: JVD, thyromegaly Chest Exam: Positive: Clear to auscultation, Normal air movement Heart Exam: Positive: Rate Normal, Regular Rhythm, Normal S1, Normal S2; Negative: Murmurs, Rubs Abdomen Exam: Positive: Normal bowel sounds, Soft; Negative: Tenderness, Hepatospenomegaly Psych Exam: Positive: Memory Intact, Oriented x 3 Vital Signs Vital Signs Date Time Temp Pulse Resp B/P (MAP) Pulse Ox O2 Delivery O2 Flow Rate FiO2 03/06/21 06:33 97.7 138 16 120/77 (91) 94 Room Air Laboratory Data Labs 24H Laboratory Tests 2 03/06/21 06:42: Triglycerides Level 81, Total Cholesterol 146, LDL Cholesterol 91, Non-HDL Cholesterol (LDL + VLDL) 107, Total HDL Cholesterol 39L, Cholesterol/HDL Ratio 3.743 Assessment/Plan 25-year-old female admitted to inpatient mental health unit for decompensated bipolar disorder. She has been examined here for medical history and physical. Breast discharge HCG is negative, does not breast feed could be due to antipsychotic medications. Bipolar disorder as per psychiatry. Plan / VTE VTE Prophylaxis Ordered?: No (freely ambulatory) Magaly Hoover MD Mar 06, 2021 08:18
[2021-03-06] MEDS: OMEGA-3 1000MG CAPSULE PO SCH (14:17)
[2021-03-06] MEDS: ChlorproMAZINE 100 MG TABLET PO PRN (15:32)
[2021-03-06 16:00] VITALS: BP 125/94
[2021-03-06] MEDS: DIVALPROEX 250 MG TAB PO SCH (20:09)
[2021-03-06] MEDS ORDERED: fluPHENAZine 5MG TABLET PO SCH (21:00)
[2021-03-07] MEDS: ChlorproMAZINE 100 MG TABLET PO PRN ×4 (00:44→22:04)
[2021-03-07] MEDS ORDERED: chlorproMAZINE 25 MG TABLET PO ONE (01:35)
--- NOTE | 2021-03-07 01:36 | MHPR ---
General Date: Mar 06, 2021 Time: 10:00 Post-Restraint Evaluation Late entry, evaluated within 24 hours THE OUTCOME OF THE RESTRAINT: continues to be disorganized, less agitated EFFECTIVENESS OF THE RESTRAINT: Mechanical and/or chemical: Positive. ANY EVIDENCE THAT THE PATIENT WAS AFFECTED EMOTIONALLY: none ANY NEED FOR COUNSELING/ASSISTANCE: no. CHANGES IN TREATMENT PLAN: medication adjustments RECOMMENDATIONS FOR FUTURE INCIDENTS: earlier administartion of prns. BARRON MORALES MD Mar 07, 2021 01:36
[2021-03-07 06:37] VITALS: BP 113/63
[2021-03-07] MEDS: DIVALPROEX 250MG *ER* TAB PO SCH (08:22)
[2021-03-07] MEDS: fluPHENAZine 5MG TABLET PO SCH ×4 (08:23→21:00)
[2021-03-07] MEDS: OMEGA-3 1000MG CAPSULE PO SCH (08:24)
[2021-03-07] MEDS: OLANZapine ORAL DISINTEGRATING TAB 5MG PO SCH ×2 (08:24→20:25)
[2021-03-07] MEDS: SYMBICORT 160/4.5MCG INHALER 6GM INH SCH ×2 (11:12→20:25)
[2021-03-07] MEDS ORDERED: QUEtiapine FUMARATE 100 MG TAB PO PRN (14:20)
--- NOTE | 2021-03-07 14:42 | MHIPNPDOC ---
[facility] Progress Note Progress Note DATE OF SERVICE: 03/07/21 HISTORY: Patient is a 25 -year-old , female, with a history of asperger's, schizoaffective, bipolar disorder, ADHD, PTSD (per provider at [facility] per mother report)borderline personality disorder who arrives to the ED after being dropped off by mother, since patient was reportedly acting bizarre. Was noted to be disorganized and inappropriate on initial evaluation in the emergency department, per chart review was making statements asking security if she could lay in her bed naked. Was initially noted to be disorganized and having paranoid delusions/illusions of social work having an affair with one of her partners "Gus" and hiding drugs. Urine talk screen was positive for benzodiazepines, amphetamines which patient related to home medications of lorazepam and Vyvanse, was also positive for cannabis which she admitted to using. Upon arrival to the unit she had received 15 mg of Zyprexa, 150 mg of Thorazine due to agitation. Interval: Patient was placed on one-to-one, saw patient in the hallway when he was eating lunch calmly in the break room. Spoke with patient had told the nurse on one-to-one that she want to punch her face but not lash out. Has been on one-to-one since yesterday and reported overnight not require restraints, as she had required the previous night 2 times. Per chart review has not been responding well to olanzapine, and Thorazine has been of more effective for sleep when agitated. Patient stated on interview I want my Seroquel. Explained that was continued. She has been tolerating Prolixin without issue, allergy, or side effects. On interview patient is very disorganized calls me different names of different people, but is oriented to person place and time. At times she appears to be internally preoccupied and responding to internal stimuli l ooking around the room or having an intense stare. Does not contract for safety. VITAL SIGNS: See below. NEW TEST RESULTS: Pending fluphenazine level CURRENT MEDICATIONS: See below. MENTAL STATUS EXAMINATION: Patient is a 25-year old female, who is standing in the hallway with a blank stare at times, appears older than stated age, overweight, in hospital clothing, improved hygiene, sitting in her room on a one-to-one. Speech: Is slowed, disorganized. Language skills are poor. Thought processes including: Disorganized. Thought content: Does not answer clearly no suicidal questioning, denies homicidal ideation. Abstract reasoning, and computation: Limited. Description of associations: Poor. Description of abnormal or psychotic thoughts: Appears to be responding to internal stimuli, talking to people that are not there. Judgment: Poor. Insight: Poor. Orientation: Now oriented to person place and time Recent and remote memory: Poor. Attention span and concentration: Decreased in context disorganization Language: Kazakh. Fund of knowledge: Unable to assess. Mood: Angry affect: No change grossly psychotic, internally preoccupied, in appropriate DIAGNOSES: Bipolar disorder versus schizoaffective disorder bipolar type Pervasive developmental disorder, autism spectrum disorder tobacco use disorder cannabis use disorder, moderate ASSESSMENT: Patient has been doing better one-to-one, no longer intrusive at the nursing station and yelling at people passing by or making inappropriate gestures such as stealing other people's clothes, or acting provocatively. Continues to be grossly psychotic although now is fully oriented. Is irritable and angry at times but has been taking medications. No acute physical complaints. Needs continued stay for acute psychotic symptoms. MANAGEMENT PLAN: D/C morning olanzapine, fluphenazine has been increased to 10 mg 3 times daily, patient responding without side effects, plan to give IM Prolixin [place] 37.5 mg p.o. tomorrow a.m. continue Depakote ER 750 every morning, 250 mg nightly, continue Seroquel 100 mg nightly. Has as needed Thorazine 100 mg every 6 hours for severe agitation. Pending fluphenazine level. TIME SPENT: 20 minutes. Vital Signs Vital Signs Date Time Temp Pulse Resp B/P (MAP) Pulse Ox O2 Delivery O2 Flow Rate FiO2 03/07/21 06:37 97.5 112 18 113/63 (80) 95 Room Air Laboratory Data 24H Labs Laboratory Tests 2 03/07/21 07:08: Valproic Acid (Depakene) Level 49.3L Current Medications Current Medications Medications (Trade) Dose Ordered Sig/Sean Route PRN Reason Start Time Stop Time Status Last Admin Dose Admin Acetaminophen (Tylenol Tab) 650 mg Q6HP PRN PO HEADACHE or MILD DISCOMFORT 03/04/21 15:25 03/06/21 05:34 Al Hydrox/Mg Hydrox/Simethicone (Mylanta) 30 ml Q4HP PRN PO HEARTBURN/INDIGESTION 03/04/21 15:25 Albuterol Sulfate (Proventil, Ventolin Hfa) 2 puff Q4HP PRN INH SHORTNESS OF BREATH 03/07/21 09:35 Budesonide/ Formoterol Fumarate (Symbicort 160/ 4.5mcg) 2 puff RBID INH 03/07/21 08:00 03/07/21 11:12 Budesonide/ Formoterol Fumarate (Symbicort 80/ 4.5mcg) 2 puff RBID INH 03/07/21 20:00 UNV Chlorpromazine HCl (Thorazine) 50 mg STAT STAT IM 03/05/21 00:41 03/05/21 00:44 DC 03/05/21 00:51 Chlorpromazine HCl (Thorazine) 100 mg Q6HP PRN PO Anxiety/agitation 03/06/21 15:25 03/07/21 00:44 Divalproex Sodium (Depakote Er) 750 mg DAILY PO 03/05/21 09:00 03/07/21 08:22 Divalproex Sodium (Depakote) 250 mg QHS PO 03/06/21 21:00 03/06/21 20:09 Fish Oil ([place]-3 (1000mg)) 1 cap DAILY PO 03/06/21 14:00 03/07/21 08:24 Fluphenazine HCl (Prolixin) 5 mg BID PO 03/05/21 21:00 03/06/21 10:47 DC 03/06/21 08:07 Fluphenazine HCl (Prolixin) 10 mg BID PO 03/06/21 21:00 03/07/21 01:58 DC 03/06/21 20:09 Fluphenazine HCl (Prolixin) 10 mg TID PO 03/07/21 09:00 03/07/21 08:23 Home Med (Home Med List Complete!) ASDIRECTED XX 03/05/21 18:30 03/05/21 18:29 DC Lorazepam (Ativan) 2 mg Q4HP PRN PO ANXIETY/AGITATION 03/05/21 10:40 03/06/21 15:21 DC 03/06/21 14:20 Magnesium Hydroxide (Milk Of Magnesia) 30 ml DAILYPRN PRN PO CONSTIPATION 03/04/21 15:25 Nicotine (Nicoderm Cq 7 Mg) 1 patch DAILY PRN TD nicotine withdrawl 03/04/21 15:25 Olanzapine (ZyPREXA ZYDIS) 5 mg Q6HP PRN PO ANXIETY/AGITATION 03/06/21 12:50 03/06/21 15:22 DC 03/06/21 13:55 Olanzapine (ZyPREXA ZYDIS) 5 mg QAM PO 03/05/21 09:00 03/07/21 08:24 Olanzapine (ZyPREXA ZYDIS) 5 mg QHS PO 03/06/21 21:00 03/06/21 20:09 Olanzapine (ZyPREXA ZYDIS) 5 mg TID PO 03/04/21 16:00 03/05/21 03:47 DC Olanzapine (ZyPREXA ZYDIS) 10 mg QHS PO 03/05/21 21:00 03/06/21 12:49 DC 03/05/21 19:35 Olanzapine (ZyPREXA) 5 mg DAILY PO 03/05/21 09:00 Cancel Olanzapine (ZyPREXA) 10 mg QHS PO 03/05/21 21:00 Cancel Quetiapine Fumarate (SEROquel) 100 mg QHSP PRN PO insomnia 03/04/21 15:25 03/06/21 10:47 DC 03/05/21 19:35 Quetiapine Fumarate (SEROquel) 100 mg QHSP PRN PO insomnia 03/06/21 10:55 03/06/21 20:09 Quetiapine Fumarate (SEROquel) 200 mg QHSP PRN PO insomnia 03/06/21 10:45 03/06/21 10:54 DC Allergies Coded Allergies: haloperidol (Verified Allergy, Severe, Tongue Swelling , 03/03/21) Per patient Latex, Natural Rubber (Verified Allergy, Mild, Burning, 02/08/20) BARRON MORALES MD Mar 07, 2021 14:42
[2021-03-07 18:52] VITALS: BP 113/73
[2021-03-07] MEDS ORDERED: SYMBICORT 80/4.5MCG INHALER 6GM INH SCH (20:00)
[2021-03-07] MEDS ORDERED: OLANZapine INTRAMUSCULAR 10MG VIAL IM ONE (20:00)
[2021-03-07] MEDS: DIVALPROEX 250 MG TAB PO SCH (20:25)
[2021-03-07] MEDS: QUEtiapine FUMARATE 100 MG TAB PO PRN (20:25)
[2021-03-08] MEDS: fluPHENAZine 5MG TABLET PO SCH (08:52)
[2021-03-08] MEDS: SYMBICORT 160/4.5MCG INHALER 6GM INH SCH ×2 (08:52→20:35)
[2021-03-08] MEDS: OMEGA-3 1000MG CAPSULE PO SCH (08:52)
[2021-03-08] MEDS: DIVALPROEX 250MG *ER* TAB PO SCH (08:52)
[2021-03-08] MEDS: ACETAMINOPHEN TAB 650MG DOSE (2X325MG) PO PRN (08:56)
[2021-03-08] MEDS ORDERED: fluPHENAZine DECAN 25MG/ML 5ML VIAL (J2680) IM SCH (09:00)
[2021-03-08] MEDS: MAALOX 30 ML SUSP *UDC PO PRN (09:59)
--- NOTE | 2021-03-08 11:17 | MHIPNPDOC ---
[facility] Progress Note Progress Note DATE OF SERVICE: 03/08/21 HISTORY: Patient is a 25 -year-old , female, with a history of asperger's, schizoaffective, bipolar disorder, ADHD, PTSD (per provider at [facility] per mother report)borderline personality disorder who arrives to the ED after being dropped off by mother, since patient was reportedly acting bizarre. Was noted to be disorganized and inappropriate on initial evaluation in the emergency department, per chart review was making statements asking security if she could lay in her bed naked. Was initially noted to be disorganized and having paranoid delusions/illusions of social work having an affair with one of her partners "Gus" and hiding drugs. Urine talk screen was positive for benzodiazepines, amphetamines which patient related to home medications of lorazepam and Vyvanse, was also positive for cannabis which she admitted to using. Upon arrival to the unit she had received 15 mg of Zyprexa, 150 mg of Thorazine due to agitation. Interval: Charts reviewed, continues to be on one-to-one. Reportedly kicked right foot into a wall and so right foot x-ray was ordered pending evaluation. Patient continues to remain grossly psychotic, but more conversive, less irritable and agitated, more calm. Denies any acute side effects from medications and took her IM Prolixin 37.5 mg injection today. Oral dose was decreased to 10 mg daily. Will be continued on other medications including Depakote and Seroquel which the patient perseverates on needing. VITAL SIGNS: See below. NEW TEST RESULTS: Still pending fluphenazine level CURRENT MEDICATIONS: See below. MENTAL STATUS EXAMINATION: Patient is a 25-year old female, who is standing in the hallway with a blank stare at times, appears older than stated age, overweight, in hospital clothing, improved hygiene, sitting in her room on a one-to-one. Speech: Is slowed, disorganized. Language skills are poor. Thought processes including: Disorganized. Thought content: Denies suicidal or homicidal ideation, but makes aggressive statements towards staff at times. Abstract reasoning, and computation: Limited. Description of associations: Poor. Description of abnormal or psychotic thoughts: Appears to be responding to internal stimuli, talking to people that are not there. Judgment: Poor. Insight: Poor. Orientation: Now oriented to person place and time Recent and remote memory: Poor. Attention span and concentration: Decreased in context disorganization Language: Tuvaluan. Fund of knowledge: Unable to assess. Mood: "fine" affect: Continues to be grossly psychotic, internally preoccupied, inappropriate, calmer DIAGNOSES: Bipolar disorder versus schizoaffective disorder bipolar type Pervasive developmental disorder, autism spectrum disorder tobacco use disorder cannabis use disorder, moderate ASSESSMENT: Continues to be grossly psychotic, although more re-directable and calmer on interview despite taking wall yesterday and pending x-ray evaluation for right foot pain after kicking while last night. Requires continued stay for acute stabilization of psychotic symptoms. MANAGEMENT PLAN: In coordination with social work have started the paperwork for long-term placement, which may be needed if symptoms do not continue to improve. maintained on one-to-one. D/C olanzapine nightly, fluphenazine has been tapered to maintenance dose of 10 mg p.o. daily, patient responding without side effects, was given IM Prolixin JOHNSTON 37.5 mg p.o. a.m. without issue, continue Depakote ER 750 every morning, 250 mg nightly, continue Seroquel 100 mg nightly. Has as needed Thorazine 100 mg every 6 hours for severe agitation. Ordered oral fluphenazine 10 mg every 6 hours for agitation in context of tapering to maintenance dose. Pending fluphenazine level. Pending x-ray evaluation of right foot by hospitalist team, order placed. TIME SPENT: 20 minutes. Vital Signs Vital Signs Date Time Temp Pulse Resp B/P (MAP) Pulse Ox O2 Delivery O2 Flow Rate FiO2 03/07/21 18:52 98.4 103 18 113/73 (86) 03/07/21 06:37 95 Room Air Current Medications Current Medications Medications (Trade) Dose Ordered Sig/Sean Route PRN Reason Start Time Stop Time Status Last Admin Dose Admin Acetaminophen (Tylenol Tab) 650 mg Q6HP PRN PO HEADACHE or MILD DISCOMFORT 03/04/21 15:25 03/08/21 08:56 Al Hydrox/Mg Hydrox/Simethicone (Mylanta) 30 ml Q4HP PRN PO HEARTBURN/INDIGESTION 03/04/21 15:25 03/08/21 09:59 Albuterol Sulfate (Proventil, Ventolin Hfa) 2 puff Q4HP PRN INH SHORTNESS OF BREATH 03/07/21 09:35 Budesonide/ Formoterol Fumarate (Symbicort 160/ 4.5mcg) 2 puff RBID INH 03/07/21 08:00 03/08/21 08:52 Budesonide/ Formoterol Fumarate (Symbicort 80/ 4.5mcg) 2 puff RBID INH 03/07/21 20:00 UNV Chlorpromazine HCl (Thorazine) 50 mg STAT STAT IM 03/05/21 00:41 03/05/21 00:44 DC 03/05/21 00:51 Chlorpromazine HCl (Thorazine) 100 mg Q6HP PRN PO Anxiety/agitation 03/06/21 15:25 03/07/21 22:04 Divalproex Sodium (Depakote Er) 750 mg DAILY PO 03/05/21 09:00 03/08/21 08:52 Divalproex Sodium (Depakote) 250 mg QHS PO 03/06/21 21:00 03/07/21 20:25 Fish Oil ([place]-3 (1000mg)) 1 cap DAILY PO 03/06/21 14:00 03/08/21 08:52 Fluphenazine Decanoate (Prolixin Decanoate) 37.5 mg Q30D IM 03/08/21 09:00 03/08/21 10:19 Fluphenazine HCl (Prolixin) 5 mg BID PO 03/05/21 21:00 03/06/21 10:47 DC 03/06/21 08:07 Fluphenazine HCl (Prolixin) 10 mg BID PO 03/06/21 21:00 03/07/21 01:58 DC 03/06/21 20:09 Fluphenazine HCl (Prolixin) 10 mg TID PO 03/07/21 09:00 03/08/21 08:52 Home Med (Home Med List Complete!) ASDIRECTED XX 03/05/21 18:30 03/05/21 18:29 DC Lorazepam (Ativan) 2 mg Q4HP PRN PO ANXIETY/AGITATION 03/05/21 10:40 03/06/21 15:21 DC 03/06/21 14:20 Magnesium Hydroxide (Milk Of Magnesia) 30 ml DAILYPRN PRN PO CONSTIPATION 03/04/21 15:25 Nicotine (Nicoderm Cq 7 Mg) 1 patch DAILY PRN TD nicotine withdrawl 03/04/21 15:25 Olanzapine (ZyPREXA ZYDIS) 5 mg Q6HP PRN PO ANXIETY/AGITATION 03/06/21 12:50 03/06/21 15:22 DC 03/06/21 13:55 Olanzapine (ZyPREXA ZYDIS) 5 mg QAM PO 03/05/21 09:00 03/07/21 14:38 DC 03/07/21 08:24 Olanzapine (ZyPREXA ZYDIS) 5 mg QHS PO 03/06/21 21:00 03/08/21 10:41 DC 03/07/21 20:25 Olanzapine (ZyPREXA ZYDIS) 5 mg TID PO 03/04/21 16:00 03/05/21 03:47 DC Olanzapine (ZyPREXA ZYDIS) 10 mg QHS PO 03/05/21 21:00 03/06/21 12:49 DC 03/05/21 19:35 Olanzapine (ZyPREXA) 5 mg DAILY PO 03/05/21 09:00 Cancel Olanzapine (ZyPREXA) 10 mg QHS PO 03/05/21 21:00 Cancel Quetiapine Fumarate (SEROquel) 100 mg QHSP PRN PO insomnia 03/04/21 15:25 03/06/21 10:47 DC 03/05/21 19:35 Quetiapine Fumarate (SEROquel) 100 mg QHSP PRN PO insomnia 03/06/21 10:55 03/07/21 14:30 DC 03/06/21 20:09 Quetiapine Fumarate (SEROquel) 100 mg QHSP PRN PO insomnia 03/07/21 14:40 03/07/21 20:25 Quetiapine Fumarate (SEROquel) 200 mg QHSP PRN PO insomnia 03/06/21 10:45 03/06/21 10:54 DC Quetiapine Fumarate (SEROquel) 200 mg QHSP PRN PO insomnia 03/07/21 14:20 03/07/21 14:38 DC Allergies Coded Allergies: haloperidol (Verified Allergy, Severe, Tongue Swelling , 03/03/21) Per patient Latex, Natural Rubber (Verified Allergy, Mild, Burning, 02/08/20) BARRON MORALES MD Mar 08, 2021 11:16
[2021-03-08] MEDS ORDERED: fluPHENAZine 5MG TABLET PO PRN (11:20)
--- NOTE | 2021-03-08 14:09 | REP ---
INDICATION: R foot injury. COMPARISON: None. TECHNIQUE: Four views portable FINDINGS: The joint spaces are symmetric and relatively well maintained. There is no evidence of acute fracture or destructive osseous lesion. IMPRESSION: Negative. <Electronically signed by Parveen Velasco > 03/08/21 [id number]
[2021-03-08 18:20] VITALS: BP 122/72
[2021-03-08] MEDS: DIVALPROEX 250 MG TAB PO SCH (20:35)
[2021-03-08] MEDS: ChlorproMAZINE 100 MG TABLET PO PRN (20:35)
[2021-03-08] MEDS: QUEtiapine FUMARATE 100 MG TAB PO PRN (20:35)
[2021-03-08] MEDS ORDERED: LORazepam 0.5 MG TAB PO ONE (22:20)
[2021-03-08] MEDS ORDERED: diphenhydrAMINE 50MG CAP PO ONE (22:20)
[2021-03-09] MEDS: MAALOX 30 ML SUSP *UDC PO PRN (02:06)
[2021-03-09 06:00] VITALS: BP 118/64
[2021-03-09] MEDS: NICOTINE 7 MG/24 HR TRANSDERMAL TD PRN (07:15)
[2021-03-09] MEDS: SYMBICORT 160/4.5MCG INHALER 6GM INH SCH ×2 (08:52→20:00)
[2021-03-09] MEDS: OMEGA-3 1000MG CAPSULE PO SCH (08:57)
[2021-03-09] MEDS: fluPHENAZine 5MG TABLET PO SCH (08:57)
[2021-03-09] MEDS: DIVALPROEX 250MG *ER* TAB PO SCH (08:57)
[2021-03-09] MEDS: ACETAMINOPHEN TAB 650MG DOSE (2X325MG) PO PRN (10:08)
[2021-03-09] MEDS: QUEtiapine FUMARATE 100 MG TAB PO PRN (21:57)
[2021-03-09] MEDS: DIVALPROEX 250 MG TAB PO SCH (21:57)
[2021-03-09] MEDS: ChlorproMAZINE 100 MG TABLET PO PRN (23:39)
[2021-03-09] MEDS: ALBUTEROL 90 MCG/ACT 8GM HFA INHALER INH PRN (23:39)
[2021-03-10] MEDS ORDERED: LORazepam 1 MG TAB PO ONE (00:25)
[2021-03-10] MEDS ORDERED: diphenhydrAMINE 25MG CAP PO ONE (00:25)
[2021-03-10] MEDS: MAALOX 30 ML SUSP *UDC PO PRN ×2 (05:04→12:07)
[2021-03-10 05:23] VITALS: BP 113/69
[2021-03-10 06:00] VITALS: BP 113/69
[2021-03-10] MEDS: SYMBICORT 160/4.5MCG INHALER 6GM INH SCH ×2 (07:36→19:31)
[2021-03-10] MEDS: OMEGA-3 1000MG CAPSULE PO SCH (08:12)
[2021-03-10] MEDS: fluPHENAZine 5MG TABLET PO SCH (08:12)
[2021-03-10] MEDS: DIVALPROEX 250MG *ER* TAB PO SCH (08:12)
[2021-03-10] MEDS: NICOTINE 7 MG/24 HR TRANSDERMAL TD PRN (08:15)
[2021-03-10 16:30] VITALS: BP 131/63
[2021-03-10] MEDS: MOM 30ML SUSPENSION UDC PO PRN (19:31)
[2021-03-10] MEDS: DIVALPROEX 250 MG TAB PO SCH (21:00)
[2021-03-10] MEDS: QUEtiapine FUMARATE 100 MG TAB PO PRN (21:01)
[2021-03-11] MEDS: OMEGA-3 1000MG CAPSULE PO SCH (07:50)
[2021-03-11] MEDS: NICOTINE 7 MG/24 HR TRANSDERMAL TD PRN (07:50)
[2021-03-11] MEDS: SYMBICORT 160/4.5MCG INHALER 6GM INH SCH ×2 (07:51→20:12)
[2021-03-11] MEDS: fluPHENAZine 5MG TABLET PO SCH (07:52)
[2021-03-11] MEDS: DIVALPROEX 250MG *ER* TAB PO SCH (07:53)
--- NOTE | 2021-03-11 10:08 | MHIPNPDOC ---
[facility] Progress Note Progress Note DATE OF SERVICE: 03/11/21 HISTORY: Patient is a 25 -year-old , female, with a history of asperger's, schizoaffective, bipolar disorder, ADHD, PTSD (per provider at [facility] per mother report)borderline personality disorder who arrives to the ED after being dropped off by mother, since patient was reportedly acting bizarre. Was noted to be disorganized and inappropriate on initial evaluation in the emergency department, per chart review was making statements asking security if she could lay in her bed naked. Was initially noted to be disorganized and having paranoid delusions/illusions of social work having an affair with one of her partners "Gus" and hiding drugs. Urine talk screen was positive for benzodiazepines, amphetamines which patient related to home medications of lorazepam and Vyvanse, was also positive for cannabis which she admitted to using. Upon arrival to the unit she had received 15 mg of Zyprexa, 150 mg of Thorazine due to agitation. Interval: No acute overnight events. Charts reviewed, continues to be on one-to-one. Patient requests ibuprofen for her right foot pain in context of kicking it into a wall, x-ray negative. Is more organized and able to converse appropriately, but continues to appear very irritable and frustrated with staff and being on the unit, swearing multiple times requiring redirection. Per nursing staff is doing better but continues to require consistent redirection when in the social milieu needing to be maintained on one-to-one. Discussed how her goal would be for her to return to group as she continues to improve. Denies any side effects from medications or acute physical complaints apart from foot pain. Eye contact is improved. VITAL SIGNS: See below. NEW TEST RESULTS: Fluphenazine level still pending, right foot x-ray negative CURRENT MEDICATIONS: See below. MENTAL STATUS EXAMINATION: Patient is a 25-year old female, who is standing in the hallway with a blank stare at times, appears older than stated age, overweight, in hospital clothing, improved hygiene, sitting in her room on a one-to-one. Speech: Is slowed, disorganized. Language skills are poor. Thought processes including: Disorganized. Thought content: Denies suicidal or homicidal ideation, but makes aggressive statements towards staff at times, requiring redirection and limit setting. Abstract reasoning, and computation: Limited. Description of associations: Poor. Description of abnormal or psychotic thoughts: No longer appears to be responding to internal stimuli Judgment: Poor. Insight: Poor. Orientation: Now oriented to person place and time Recent and remote memory: Poor. Attention span and concentration: Decreased in context disorganization Language: Romanian. Fund of knowledge: Unable to assess. Mood: "Angry" affect: Irritable, angry, more organized, mood congruent DIAGNOSES: Bipolar disorder versus schizoaffective disorder bipolar type Pervasive developmental disorder, autism spectrum disorder tobacco use disorder cannabis use disorder, moderate ASSESSMENT: Continues to be highly irritable, but is more organized and no longer appears to be responding to internal stimuli. Will require further days to continue with acute stabilization and safe discharge planning. MANAGEMENT PLAN: Received monthly IM Prolixin JOHNSTON 37.5 mg without issue, continue Depakote ER 750 every morning, increase nightly dose from 250 to 500 mg ER nightly for mood stabilization, also ordered Depakote level for tomorrow a.m., continue Seroquel 100 mg nightly. Has as needed Thorazine 100 mg every 6 hours for severe agitation, has not taken since March 09, 2021. TIME SPENT: 25 minutes. Vital Signs Vital Signs Date Time Temp Pulse Resp B/P (MAP) Pulse Ox O2 Delivery O2 Flow Rate FiO2 03/10/21 16:30 96.5 89 16 131/63 (85) 03/10/21 06:00 97 03/07/21 06:37 Room Air Current Medications Current Medications Medications (Trade) Dose Ordered Sig/Sean Route PRN Reason Start Time Stop Time Status Last Admin Dose Admin Acetaminophen (Tylenol Tab) 650 mg Q6HP PRN PO HEADACHE or MILD DISCOMFORT 03/04/21 15:25 03/09/21 10:08 Al Hydrox/Mg Hydrox/Simethicone (Mylanta) 30 ml Q4HP PRN PO HEARTBURN/INDIGESTION 03/04/21 15:25 03/10/21 12:07 Albuterol Sulfate (Proventil, Ventolin Hfa) 2 puff Q4HP PRN INH SHORTNESS OF BREATH 03/07/21 09:35 03/09/21 23:39 Budesonide/ Formoterol Fumarate (Symbicort 160/ 4.5mcg) 2 puff RBID INH 03/07/21 08:00 03/11/21 07:51 Budesonide/ Formoterol Fumarate (Symbicort 80/ 4.5mcg) 2 puff RBID INH 03/07/21 20:00 UNV Chlorpromazine HCl (Thorazine) 50 mg STAT STAT IM 03/05/21 00:41 03/05/21 00:44 DC 03/05/21 00:51 Chlorpromazine HCl (Thorazine) 100 mg Q6HP PRN PO Anxiety/agitation 03/06/21 15:25 03/09/21 23:39 Divalproex Sodium (Depakote Er) 750 mg DAILY PO 03/05/21 09:00 03/11/21 07:53 Divalproex Sodium (Depakote) 250 mg QHS PO 03/06/21 21:00 03/10/21 21:00 Fish Oil ([place]-3 (1000mg)) 1 cap DAILY PO 03/06/21 14:00 03/11/21 07:50 Fluphenazine Decanoate (Prolixin Decanoate) 37.5 mg Q30D IM 03/08/21 09:00 03/08/21 10:19 Fluphenazine HCl (Prolixin) 5 mg BID PO 03/05/21 21:00 03/06/21 10:47 DC 03/06/21 08:07 Fluphenazine HCl (Prolixin) 10 mg BID PO 03/06/21 21:00 03/07/21 01:58 DC 03/06/21 20:09 Fluphenazine HCl (Prolixin) 10 mg DAILY PO 03/09/21 09:00 03/11/21 07:52 Fluphenazine HCl (Prolixin) 10 mg Q4HP PRN PO AGITATION 03/08/21 11:20 03/08/21 22:04 Fluphenazine HCl (Prolixin) 10 mg TID PO 03/07/21 09:00 03/08/21 11:13 DC 03/08/21 08:52 Home Med (Home Med List Complete!) ASDIRECTED XX 03/05/21 18:30 03/05/21 18:29 DC Lorazepam (Ativan) 2 mg Q4HP PRN PO ANXIETY/AGITATION 03/05/21 10:40 03/06/21 15:21 DC 03/06/21 14:20 Magnesium Hydroxide (Milk Of Magnesia) 30 ml DAILYPRN PRN PO CONSTIPATION 03/04/21 15:25 03/10/21 19:31 Nicotine (Nicoderm Cq 7 Mg) 1 patch DAILY PRN TD nicotine withdrawl 03/04/21 15:25 03/11/21 07:50 Olanzapine (ZyPREXA ZYDIS) 5 mg Q6HP PRN PO ANXIETY/AGITATION 03/06/21 12:50 03/06/21 15:22 DC 03/06/21 13:55 Olanzapine (ZyPREXA ZYDIS) 5 mg QAM PO 03/05/21 09:00 03/07/21 14:38 DC 03/07/21 08:24 Olanzapine (ZyPREXA ZYDIS) 5 mg QHS PO 03/06/21 21:00 03/08/21 10:41 DC 03/07/21 20:25 Olanzapine (ZyPREXA ZYDIS) 5 mg TID PO 03/04/21 16:00 03/05/21 03:47 DC Olanzapine (ZyPREXA ZYDIS) 10 mg QHS PO 03/05/21 21:00 03/06/21 12:49 DC 03/05/21 19:35 Olanzapine (ZyPREXA) 5 mg DAILY PO 03/05/21 09:00 Cancel Olanzapine (ZyPREXA) 10 mg QHS PO 03/05/21 21:00 Cancel Quetiapine Fumarate (SEROquel) 100 mg QHSP PRN PO insomnia 03/04/21 15:25 03/06/21 10:47 DC 03/05/21 19:35 Quetiapine Fumarate (SEROquel) 100 mg QHSP PRN PO insomnia 03/06/21 10:55 03/07/21 14:30 DC 03/06/21 20:09 Quetiapine Fumarate (SEROquel) 100 mg QHSP PRN PO insomnia 03/07/21 14:40 03/10/21 21:01 Quetiapine Fumarate (SEROquel) 200 mg QHSP PRN PO insomnia 03/06/21 10:45 03/06/21 10:54 DC Quetiapine Fumarate (SEROquel) 200 mg QHSP PRN PO insomnia 03/07/21 14:20 03/07/21 14:38 DC Allergies Coded Allergies: haloperidol (Verified Allergy, Severe, Tongue Swelling , 03/03/21) Per patient Latex, Natural Rubber (Verified Allergy, Mild, Burning, 02/08/20) BARRON MORALES MD Mar 11, 2021 10:08
[2021-03-11] MEDS: MOM 30ML SUSPENSION UDC PO PRN (11:01)
[2021-03-11] MEDS: IBUPROFEN 600MG TAB PO PRN (11:01)
[2021-03-11] MEDS ORDERED: ONDANSETRON 4 MG TAB PO PRN (13:55)
[2021-03-11 16:24] VITALS: BP 126/77
[2021-03-11] MEDS: QUEtiapine FUMARATE 100 MG TAB PO PRN (20:12)
[2021-03-11] MEDS: ChlorproMAZINE 100 MG TABLET PO PRN (20:12)
[2021-03-11] MEDS: DIVALPROEX 500MG *ER* TAB PO SCH (20:12)
[2021-03-12] MEDS: DIVALPROEX 250MG *ER* TAB PO SCH (08:56)
[2021-03-12] MEDS: SYMBICORT 160/4.5MCG INHALER 6GM INH SCH ×2 (08:56→21:08)
[2021-03-12] MEDS: fluPHENAZine 5MG TABLET PO SCH (08:56)
[2021-03-12] MEDS: OMEGA-3 1000MG CAPSULE PO SCH (08:56)
[2021-03-12] MEDS: NICOTINE 21MG/24HR 1 EA TRANSDERMAL TD SCH (08:56)
[2021-03-12] MEDS: ChlorproMAZINE 100 MG TABLET PO PRN ×2 (09:44→21:08)
[2021-03-12] MEDS: PRENATAL VITAMINS CHEWABLE TABLET PO SCH (11:26)
--- NOTE | 2021-03-12 13:47 | MHIPNPDOC ---
[facility] Progress Note Progress Note DATE OF SERVICE: 03/12/21 HISTORY: Patient is a 25 -year-old , female, with a history of asperger's, schizoaffective, bipolar disorder, ADHD, PTSD (per provider at [facility] per mother report)borderline personality disorder who arrives to the ED after being dropped off by mother, since patient was reportedly acting bizarre. Was noted to be disorganized and inappropriate on initial evaluation in the emergency department, per chart review was making statements asking security if she could lay in her bed naked. Was initially noted to be disorganized and having paranoid delusions/illusions of social work having an affair with one of her partners "Gus" and hiding drugs. Urine talk screen was positive for benzodiazepines, amphetamines which patient related to home medications of lorazepam and Vyvanse, was also positive for cannabis which she admitted to using. Upon arrival to the unit she had received 15 mg of Zyprexa, 150 mg of Thorazine due to agitation. Interval: No acute overnight events. Charts reviewed, continues to do better on the unit, one-to-one was removed, is clear and logical in conversation, denies hallucinations, denies paranoia, is no longer irritable staff, more pleasant on conversation. Discusses how the last few days were a bit of a blur but now she is kind of anxious about being on the inpatient unit, but is agreeable to possible discharge tomorrow if continues to improve. Discussed how there is concern about family dynamic, was made aware of grandfather seeking custody of the child, patient reports " he always does this, I am not concerned, he can be narcissistic and do these things". Denies suicidal ideation, homicidal ideation, janine or psychotic symptoms. VITAL SIGNS: See below. NEW TEST RESULTS: Fluphenazine level 4.1, Depakote level 52.8 wnl CURRENT MEDICATIONS: See below. MENTAL STATUS EXAMINATION: Patient is a 25-year old female, who is sitting in her bed, appears older than stated age, overweight, in hospital clothing, improved hygiene, no longer one-to-one Speech: Mildly slowed, no longer disorganized Language skills are improved Thought processes including: Linear and logical Thought content: Denies suicidal or homicidal ideation, no longer makes aggressive statements, he is calm Abstract reasoning, and computation: Good Description of associations: Normal Description of abnormal or psychotic thoughts: No longer appears to be responding to internal stimuli Judgment: Fair, improved Insight: Good Orientation: X4 Recent and remote memory: Poor surrounding events of admission Attention span and concentration: Fair Language: Spanish. Fund of knowledge: Unable to assess. Mood: "Way better" affect: Euthymic, some mild anxiety reported in context of being on inpatient unit, organized, mood congruent DIAGNOSES: Schizoaffective disorder bipolar type Pervasive developmental disorder, autism spectrum disorder tobacco use disorder cannabis use disorder, moderate ASSESSMENT: Continues to improve in the unit, no longer disorganized or internally preoccupied, improved mood, reports increased clarity of thoughts and is calm on interview without displaying signs of anger or aggression. Goal oriented to return home and see her kids. Denies suicidal or homicidal ideation, intent or plan MANAGEMENT PLAN: Received monthly IM Prolixin JOHNSTON 37.5 mg without issue, continue Depakote ER 750 every morning, nightly dose 500 mg ER nightly for mood stabilization, Depakote level within normal limits see above. Prolixin level within normal limits see above. continue Seroquel 100 mg nightly. Possible discharge tomorrow, needs more time to assess for stability of mood and psychotic symptoms. TIME SPENT: 30 minutes. Vital Signs Vital Signs Date Time Temp Pulse Resp B/P (MAP) Pulse Ox O2 Delivery O2 Flow Rate FiO2 03/11/21 16:24 97.9 94 18 126/77 (93) 96 Room Air Laboratory Data 24H Labs Laboratory Tests 2 03/12/21 07:01: Valproic Acid (Depakene) Level 52.8 Current Medications Current Medications Medications (Trade) Dose Ordered Sig/Sean Route PRN Reason Start Time Stop Time Status Last Admin Dose Admin Acetaminophen (Tylenol Tab) 650 mg Q6HP PRN PO HEADACHE or MILD DISCOMFORT 03/04/21 15:25 03/09/21 10:08 Al Hydrox/Mg Hydrox/Simethicone (Mylanta) 30 ml Q4HP PRN PO HEARTBURN/INDIGESTION 03/04/21 15:25 03/10/21 12:07 Albuterol Sulfate (Proventil, Ventolin Hfa) 2 puff Q4HP PRN INH SHORTNESS OF BREATH 03/07/21 09:35 03/09/21 23:39 Budesonide/ Formoterol Fumarate (Symbicort 160/ 4.5mcg) 2 puff RBID INH 03/07/21 08:00 03/12/21 08:56 Budesonide/ Formoterol Fumarate (Symbicort 80/ 4.5mcg) 2 puff RBID INH 03/07/21 20:00 UNV Chlorpromazine HCl (Thorazine) 50 mg STAT STAT IM 03/05/21 00:41 03/05/21 00:44 DC 03/05/21 00:51 Chlorpromazine HCl (Thorazine) 100 mg Q6HP PRN PO Anxiety/agitation 03/06/21 15:25 03/12/21 09:44 Divalproex Sodium (Depakote Er) 500 mg QHS PO 03/11/21 21:00 03/11/21 20:12 Divalproex Sodium (Depakote Er) 750 mg DAILY PO 03/05/21 09:00 03/12/21 08:56 Divalproex Sodium (Depakote) 250 mg QHS PO 03/06/21 21:00 03/11/21 10:06 DC 03/10/21 21:00 Fish Oil ([place]-3 (1000mg)) 1 cap DAILY PO 03/06/21 14:00 03/12/21 08:56 Fluphenazine Decanoate (Prolixin Decanoate) 37.5 mg Q30D IM 03/08/21 09:00 03/08/21 10:19 Fluphenazine HCl (Prolixin) 5 mg BID PO 03/05/21 21:00 03/06/21 10:47 DC 03/06/21 08:07 Fluphenazine HCl (Prolixin) 10 mg BID PO 03/06/21 21:00 03/07/21 01:58 DC 03/06/21 20:09 Fluphenazine HCl (Prolixin) 10 mg DAILY PO 03/09/21 09:00 03/12/21 08:56 Fluphenazine HCl (Prolixin) 10 mg Q4HP PRN PO AGITATION 03/08/21 11:20 03/08/21 22:04 Fluphenazine HCl (Prolixin) 10 mg TID PO 03/07/21 09:00 03/08/21 11:13 DC 03/08/21 08:52 Home Med (Home Med List Complete!) ASDIRECTED XX 03/05/21 18:30 03/05/21 18:29 DC Ibuprofen (Advil) 600 mg Q6HP PRN PO MODERATE PAIN (PS 5-7) 03/11/21 10:10 03/11/21 11:01 Lorazepam (Ativan) 2 mg Q4HP PRN PO ANXIETY/AGITATION 03/05/21 10:40 03/06/21 15:21 DC 03/06/21 14:20 Magnesium Hydroxide (Milk Of Magnesia) 30 ml DAILYPRN PRN PO CONSTIPATION 03/04/21 15:25 03/11/21 11:01 Nicotine (Nicoderm Cq 21mg) 1 patch DAILY TD 03/12/21 09:00 03/12/21 08:56 Nicotine (Nicoderm Cq 7 Mg) 1 patch DAILY PRN TD nicotine withdrawl 03/04/21 15:25 03/11/21 10:23 DC 03/11/21 07:50 Olanzapine (ZyPREXA ZYDIS) 5 mg Q6HP PRN PO ANXIETY/AGITATION 03/06/21 12:50 03/06/21 15:22 DC 03/06/21 13:55 Olanzapine (ZyPREXA ZYDIS) 5 mg QAM PO 03/05/21 09:00 03/07/21 14:38 DC 03/07/21 08:24 Olanzapine (ZyPREXA ZYDIS) 5 mg QHS PO 03/06/21 21:00 03/08/21 10:41 DC 03/07/21 20:25 Olanzapine (ZyPREXA ZYDIS) 5 mg TID PO 03/04/21 16:00 03/05/21 03:47 DC Olanzapine (ZyPREXA ZYDIS) 10 mg QHS PO 03/05/21 21:00 03/06/21 12:49 DC 03/05/21 19:35 Olanzapine (ZyPREXA) 5 mg DAILY PO 03/05/21 09:00 Cancel Olanzapine (ZyPREXA) 10 mg QHS PO 03/05/21 21:00 Cancel Ondansetron HCl (Zofran) 4 mg BIDP PRN PO NAUSEA 03/11/21 13:55 Prenat Multivit/ [place]/Iron/Folic Ac ( Vitamins) 1 tab DAILY PO 03/12/21 09:00 03/12/21 11:26 Quetiapine Fumarate (SEROquel) 100 mg QHSP PRN PO insomnia 03/04/21 15:25 03/06/21 10:47 DC 03/05/21 19:35 Quetiapine Fumarate (SEROquel) 100 mg QHSP PRN PO insomnia 03/06/21 10:55 03/07/21 14:30 DC 03/06/21 20:09 Quetiapine Fumarate (SEROquel) 100 mg QHSP PRN PO insomnia 03/07/21 14:40 03/11/21 20:12 Quetiapine Fumarate (SEROquel) 200 mg QHSP PRN PO insomnia 03/06/21 10:45 03/06/21 10:54 DC Quetiapine Fumarate (SEROquel) 200 mg QHSP PRN PO insomnia 03/07/21 14:20 03/07/21 14:38 DC Allergies Coded Allergies: haloperidol (Verified Allergy, Severe, Tongue Swelling , 03/03/21) Per patient Latex, Natural Rubber (Verified Allergy, Mild, Burning, 02/08/20) BARRON MORALES MD Mar 12, 2021 13:47
[2021-03-12 16:15] VITALS: BP 105/60
[2021-03-12] MEDS: OMEPRAZOLE 20 MG CAP PO SCH (17:02)
[2021-03-12] MEDS: ALBUTEROL 90 MCG/ACT 8GM HFA INHALER INH PRN (18:04)
[2021-03-12] MEDS: DIVALPROEX 500MG *ER* TAB PO SCH (21:08)
[2021-03-12] MEDS: QUEtiapine FUMARATE 100 MG TAB PO PRN (21:08)
[2021-03-13 06:40] VITALS: BP 97/54
[2021-03-13] MEDS: SYMBICORT 160/4.5MCG INHALER 6GM INH SCH (08:57)
[2021-03-13] MEDS: OMEPRAZOLE 20 MG CAP PO SCH (08:58)
[2021-03-13] MEDS: DIVALPROEX 250MG *ER* TAB PO SCH (08:58)
[2021-03-13] MEDS: OMEGA-3 1000MG CAPSULE PO SCH (08:58)
[2021-03-13] MEDS: fluPHENAZine 5MG TABLET PO SCH (08:58)
[2021-03-13] MEDS: PRENATAL VITAMINS CHEWABLE TABLET PO SCH (08:58)
[2021-03-13] MEDS: IBUPROFEN 600MG TAB PO PRN (08:59)
[2021-03-13] MEDS: NICOTINE 21MG/24HR 1 EA TRANSDERMAL TD SCH (09:01)
[2021-03-13] MEDS ORDERED: FLUP5TAB13 PO (09:27)
[2021-03-13] MEDS ORDERED: NICO21PAT TD (09:27)
[2021-03-13] MEDS ORDERED: CHLO100T30 PO (09:27)
[2021-03-13] MEDS ORDERED: QUET100T2 PO (09:27)
[2021-03-13] MEDS ORDERED: FISH1CAP26 PO (09:27)
[2021-03-13] MEDS ORDERED: DEPA250T2 PO (09:27)
[2021-03-13] MEDS ORDERED: DEPA500T2 PO (09:27)
[2021-03-13] MEDS ORDERED: FLUP25VL IM (09:27)
[2021-03-13] MEDS ORDERED: OMEP-218 PO (09:27)
--- NOTE | 2021-03-13 09:44 | MHDSPDOC ---
[facility] Discharge Summary Discharge Summary DATE OF ADMISSION: Mar 04, 2021 at 15:21 DATE OF DISCHARGE: 03/13/2021 Discharge diagnoses: Schizoaffective disorder bipolar type Pervasive developmental disorder, autism spectrum disorder tobacco use disorder cannabis use disorder, moderate Reason for admission: Patient is a 25 -year-old , female, with a history of asperger's, schizoaffective, bipolar disorder, ADHD, PTSD (per provider at [facility] per mother report)borderline personality disorder who arrives to the ED after being dropped off by mother, since patient was reportedly acting bizarre. Was noted to be disorganized and inappropriate on initial evaluation in the emergency department, per chart review was making statements asking security if she could lay in her bed naked. Was initially noted to be disorganized and having paranoid delusions/illusions of social work having an affair with one of her partners "Gus" and hiding drugs. Urine talk screen was positive for benzodiazepines, amphetamines which patient related to home medications of lorazepam and Vyvanse, was also positive for cannabis which she admitted to using. Upon arrival to the unit she had received 15 mg of Zyprexa, 150 mg of Thorazine due to agitation. On lab testing was positive for cannabis, amphetamines, benzodiazepines. Vital signs: See below Consultants involved: See medical H&P by hospitalist Treatment and progress on the unit: Patient was admitted to the [facility] 9.39 legal status and was afforded the following treatment modalities: 1. Individual therapy 2. Group therapy 3. Medication management 4. Milieu therapy 5. Safe environment Hospital course: Patient was admitted to the [facility] on a 9.39 legal status. Was medically cleared prior to coming up to the [facility]. Upon arrival was agitated and required multiple doses of antipsychotic medications including olanzapine and fluphenazine IM as mechanical chemical restraints were applied. Initially patient was very disorganized, refusing staff members, very irritable and angry, paranoid and was required he put on a one-to-one due to intrusive behavior at [facility]. She was started on fluphenazine 5 mg twice daily which was titrated up to 10 mg 3 times daily. She was given fluphenazine to decanoate 37.5 mg IM JOHNSTON 03/08/2021. Was continued on a lower dose of oral fluphenazine afterwards at 10 mg p.o. daily. She was also started and continued on valproic acid extended release which was titrated up to 750 mg every morning and 500 mg every afternoon, levels were taken fluphenazine level 4.1 March 07, 2021, Depakote level 52.8 on repeat March 12, 2021, was initially low wnl. Lipid panel was within normal limits apart from low HDL, was started on omega 3 FFA.was also continued on Seroquel 100 mg nightly for sleep as she reported benefit from this medication and have been taking 50 mg at home prior to arrival. Aims testing prior to discharge was 0 on interview. Patient found medications beneficial and tolerated them well, without reported side effects apart from some mild sedation which was reported to be tolerable. Denies mood, anxiety and intrusive thoughts which improved with treatment. Patient attended groups daily in the days prior to discharge after being taken off one-to-one. Patient symptoms improved with treatment. On day of discharge patient denied depression, anxiety, insomnia, suicidal or homicidal ideations intent or plan, hallucinations, delusions. Patient was discharged home with follow-up. Patient felt safe for discharge. Was offered continued stay on voluntary admission but refused. Discharge assessment: On today's interview patient is alert and oriented, dressed appropriately. Hygiene and grooming is well-kept. Smiles on approach and is pleasant and engaged on interview, she is no longer angry, no longer paranoid, no longer disorganized. States that "these medications helped me a lot more than the ones I had last time and I plan to continue taking them". Was made aware that she is due for her next JOHNSTON Prolixin injection in approximately 3-1/2 weeks. Denies depression and anxiety. Denies suicidal homicidal ideation, intent or planning. Denies and is not observed with janine or psychotic symptoms of delusions, hallucinations, bizarre thinking, obsessions, paranoia, ruminations, illogical thoughts, flight of ideas or having poor insight or judgment. Patient has normal mentation, declines further hospitalization of voluntary status and meets criteria for discharge today, patient encouraged to return the hospital if symptoms worsen or change and encouraged to call unit if they feel they need provider's questions to be answered or help with medications or care. Mental status: Patient is a 25-year old female, who is sitting in her bed, appears older than stated age, overweight, in hospital clothing, improved hygiene, no longer one-to-one Speech: Mildly slowed, no longer disorganized Language skills are improved Thought processes including: Linear and logical Thought content: Denies suicidal or homicidal ideation, no longer makes aggressive statements, he is calm Abstract reasoning, and computation: Good Description of associations: Normal Description of abnormal or psychotic thoughts: No longer appears to be responding to internal stimuli Judgment: Fair, improved Insight: Good Orientation: X4 Recent and remote memory: Poor surrounding events of admission Attention span and concentration: Fair Language: Estonian. Fund of knowledge: Unable to assess. Mood: "absolutely good, -03/24" affect: Euthymic, not elevated, calm, smiles and laughs, organized, mood congruent Medications on discharge: see medication reconciliation: CSSRS on discharge: Wish to be : No nonspecific active suicidal thoughts: No lifetime attempts: 0 interrupted attempts: 0 aborted attempts: 0 preparatory acts or behavior: None Taking into consideration safety state, status, modifiable, non-modifiable risk factors patient is at low risk on discharge for suicide according to [place] suicide evaluation. PLAN/FOLLOWUP ARRANGEMENTS: Follow Up Care Education Label * Mental Health Appt 1 * Mental Health [facility] * Established With This Provider Yes * Therapist SELENE * Date Mar 20, 2021 * Time 14:20 * Address of Clinic or Practice [address] [place] [address] * * Additional information PATIENT NEEDS TO CONTACT PROVIDER IF SHE WANTS PHONE APPOINTMENT OR AT THE OFFICE. Follow Up Care Education Label * Mental Health Appt 2 * Crisis Support 05/01 [facility] * Established With This Provider Yes * Therapist TIMI * Date Mar 21, 2021 * Time 14:00 * Address of Clinic or Practice [address] [place] [address] * * Additional information CALL PROVIDER IF YOU WANT THIS APPOINTMENT IN THE OFFICE OR OVER THE PHONE. Follow Up Care Education Label * Medical * Medical Follow Up [facility] * Established With This Provider Yes * Therapist DR. ARIK MURPHY * Date Mar 14, 2021 * Time 13:00 * Address of Clinic or Practice [address] [place] [address] * Follow Up Care Education Label * Case Management * Entry Level Sales Associate Tammy Jurado * Date Mar 21, 2021 * Time 10:00 * Additional information Tammy will meet pt at her home. The amount of time spent in the coordination of care for this patient was approximately 40 minutes. ETOH/Disorder Med Rx ETOH/DRUG DISORDER RX: Offrd @ d/c & pt refused Vital Signs/I&Os Vital Signs Date Time Temp Pulse Resp B/P (MAP) Pulse Ox O2 Delivery O2 Flow Rate FiO2 03/13/21 06:40 98.1 81 16 97/54 (68) 100 Room Air Medications Scheduled Budesonide/Formoterol (Symbicort 160-4.5 Mcg Inhaler) 6 Gm Hfa.aer.ad, 2 PUFF INH BID for COPD, (Reported) Divalproex Sodium (Depakote ER) 500 Mg Tab.er.24h, 500 MG PO QHS for mood stabilization, #7 Divalproex Sodium (Depakote ER) 250 Mg Tab.er.24h, 750 MG PO DAILY for mood stabilization, #7 Fluphenazine Decanoate (Fluphenazine Decanoate) 25 Mg/1 Ml Vial, 37.5 MG IM Q30D for psychosis, #1 Fluphenazine HCl (Fluphenazine HCl) 5 Mg Tablet, 10 MG PO DAILY for psychosis, #7 Nicotine (Nicotine Patch) 21 Mg Patch.td24, 1 PATCH TD DAILY for nicotine cravings, #7 [place] 3 Polyunsat Fatty Acids (Fish Oil 1,000 mg Softgel) 1,000 Mg Capsule, 1 CAP PO DAILY for low hdl, #30 Omeprazole (Omeprazole) 20 Mg Capsule.dr, 40 MG PO DAILY for gerd, #7 Vit37/Iron/Folic Acid ([place] Chewable Tablet) 1 Each Tab.chew, 1 CHW PO DAILY for SUPPLEMENT, (Reported) Scheduled PRN Albuterol Sulfate (Proair Hfa) 8.5 Gm Hfa.aer.ad, 2 PUFF INH Q6H PRN for SHORTNESS OF BREATH, (Reported) Chlorpromazine HCl (Chlorpromazine HCl) 100 Mg Tablet, 100 MG PO Q6HP PRN for Anxiety/agitation, #7 Quetiapine Fumarate (Quetiapine Fumarate) 100 Mg Tablet, 100 MG PO QHSP PRN for insomnia, #7 Miscellaneous Medications [Med Rec Comment] , for ., (Reported) LIST OBTAINED FROM PCP Allergies Coded Allergies: haloperidol (Verified Allergy, Severe, Tongue Swelling , 03/03/21) Per patient Latex, Natural Rubber (Verified Allergy, Mild, Burning, 02/08/20) BARRON MORALES MD Mar 13, 2021 09:44
== END 2021-03-13 10:37 | disposition home or self-care (01) | DRG 750 ==
LOC: M ED 21:21 → M ED INP 03-04 15:21 → M PSY 03-04 16:29
PROVIDERS: ADMIT Student in an Organized Health Care Education/Training Program; ATTEND Student in an Organized Health Care Education/Training Program
DX: F25.0 Schizoaffective disorder, bipolar type (principal); Q79.60 Ehlers-Danlos syndrome, unspecified; F17.200 Nicotine dependence, unspecified, uncomplicated; F12.90 Cannabis use, unspecified, uncomplicated; F84.0 Autistic disorder; F43.10 Post-traumatic stress disorder, unspecified; F90.9 Attention-deficit hyperactivity disorder, unspecified type; F60.3 Borderline personality disorder; Z79.899 Other long term (current) drug therapy; Z88.8 Allergy status to other drugs, medicaments and biological substances; Z91.040 Latex allergy status; J45.909 Unspecified asthma, uncomplicated; F84.5 Asperger's syndrome

== ENCOUNTER → 2023-11-25 | Outpatient (REF) ==
[~2023-11-25] MED LIST changes: +CHLO100T30 PO; +DEPA250T2 PO; +DEPA500T2 PO; +FISH1CAP26 PO; +FLUP25VL IM; +FLUP5TAB13 PO; +LAMI1TAB7 PO; +MED REC COMMENT; +NICO21PAT TD; +OMEP-173 PO; +PREN1CHW6 PO; +PROAAER10 INH; +QUET100T2 PO; +QUET50TA4 PO; +SERO200T PO; +SYMB16INH INH; +VRAY1.5C PO; +VYVA40CA3 PO
== END ==
LOC: M PLAIMG 13:41
PROVIDERS: ATTEND Internal Medicine
DX: R52 Pain, unspecified (principal)

== ENCOUNTER → 2024-03-25 | Outpatient (REF) | payer OTHER, MEDICAID ==
[2024-03-25 16:03] LABS: Trichomonas vaginalis (AMP) NOT DETECTED (NEGATIVE)
[2024-03-28 13:19] LABS: GC DNA AMPLIFICATION NEGATIVE (NEGATIVE)
[2024-03-29 15:17] LABS: HPV APTIMA Not Detected (Not Detected)
== END ==
LOC: M SFHCWAGY 12:46
PROVIDERS: ATTEND Obstetrics & Gynecology
DX: Z12.4 Encounter for screening for malignant neoplasm of cervix (principal)